=== PATIENT | male | born 1980 | race Caucasian/White ===

== ENCOUNTER 2020-04-02 11:30 | Inpatient (IN) ==
[2020-04-08] MEDS ORDERED: CEFUROXIME INJ 1,500 MG in SYRINGE 1 EACH IV ONE (09:22)
[2020-04-08] MEDS ORDERED: DEXTROSE 50% 25 GM/50 ML VIAL IV PRN ×2 (09:22)
[2020-04-08] MEDS ORDERED: GLUCAGON 1 MG VIAL IM PRN ×2 (09:22)
[2020-04-08] MEDS ORDERED: SODIUM CHLORIDE 0.9% 1,000 ML IV SCH (09:30)
[2020-04-08 10:04] LABS: Basophils % 0.6 % (0.0-0.8); Eosinophils # 0.3 10*3/uL (0.0-0.87); Eosinophils % 4.7 % (0.00-10.9); Hematocrit 38.8 VOL% (42.0-52.0); Immature Granulocytes % 0.2 %; Immature Granulocytes Absolute 0.01 #; Lymphocytes # 1.8 10*3/uL (1.4-4.0); Lymphocytes % 26.6 % (21.2-54.2); Mean Corpuscular HGB Conc 33.5 GM/DL (32-36); Mean Corpuscular Volume 89.4 FL (87-102); Mean Platelet Volume 9.5 FL (9.6-12.0); Neutrophils % 59.9 % (38.7-73.9); Platelet Count 200 T/CUMM (130-400); Red Blood Count 4.34 MC/CUMM (3.8-5.5); Red Cell Distribution Width 13.2 % (9.3-17.3); White Blood Count 6.6 T/CUMM (4-12)
[2020-04-08] MEDS ORDERED: NITROGLYCERIN SL 0.4 MG TABLET SL PRN (10:12)
[2020-04-08] MEDS ORDERED: ZALEPLON 5 MG CAPSULE PO PRN (10:12)
[2020-04-08] MEDS ORDERED: CLORAZEPATE 3.75 MG TABLET PO PRN (10:12)
[2020-04-08] MEDS ORDERED: MORPHINE 4 MG/1 ML VIAL IV PRN (10:13)
[2020-04-08 10:36] LABS: Albumin 3.5 G/DL (3.4-5.0); Bilirubin,Total 0.6 MG/DL (0.2-1.0); Osmolality,Calculated 273.8 MOS/KG (273-304); Total Protein 7.7 G/DL (6.4-8.3)
[2020-04-08] MEDS: CHLORHEXIDINE 0.12% ORAL RINSE 60 ML BOTTLE SWISH/SPIT SCH ×2 (11:18→22:01)
[2020-04-08 11:50] LABS: ABG Base Excess 2.7 MMOL/L (-2.5-2.5); ABG HCO3 26.8 MMOL/L (20-26); ABG Oxygen Saturation 98.5 % (95-100); ABG PH 7.422 (7.35-7.45)
[2020-04-08] MEDS ORDERED: DIAZEPAM 5 MG TABLET PO ONE (12:24)
[2020-04-08] MEDS ORDERED: FAMOTIDINE 20 MG TABLET PO ONE (12:24)
[2020-04-08] MEDS: INSULIN REGULAR 100 UNIT/ML SUBCUT SCH ×3 (12:57→22:01)
[2020-04-08] MEDS: CHLORHEXIDINE 4% SOLN 118 ML BOTTLE TOP SCH ×2 (15:03→22:01)
[2020-04-09] MEDS: CHLORHEXIDINE 4% SOLN 118 ML BOTTLE TOP SCH ×2 (03:40→08:01)
[2020-04-09] MEDS: CHLORHEXIDINE 0.12% ORAL RINSE 60 ML BOTTLE SWISH/SPIT SCH ×3 (03:40→21:18)
[2020-04-09] MEDS ORDERED: PAPAVERINE 60 MG/2 ML VIAL ONE (04:21)
[2020-04-09] MEDS ORDERED: VANCOMYCIN 1,000 MG VIAL ONE (04:22)
[2020-04-09] MEDS ORDERED: VANCOMYCIN 500 MG VIAL ONE (04:22)
[2020-04-09] MEDS ORDERED: CALCIUM CHLORIDE 1,000 MG/10 ML VIAL IV ONE (05:59)
[2020-04-09] MEDS ORDERED: SUFentanil 250 MCG/5 ML AMP ONE (06:00)
[2020-04-09] MEDS ORDERED: MIDAZOLAM 10 MG/2 ML VIAL ONE (06:00)
[2020-04-09] MEDS ORDERED: EPINEPHrine 1 MG/ML VIAL ONE (06:00)
[2020-04-09] MEDS ORDERED: DIAZEPAM 5 MG TABLET PO ONE (06:30)
[2020-04-09] MEDS ORDERED: FAMOTIDINE 20 MG TABLET PO ONE (06:30)
[2020-04-09] MEDS ORDERED: CEFUROXIME INJ 1,500 MG in SYRINGE 1 EACH IV ONE (06:30)
[2020-04-09 07:35] LABS: ABG HCO3 24.4 MMOL/L (20-26); ABG PCO2 41.3 MM HG (35-48); ABG PH 7.389 (7.35-7.45); Glucose Heart Surgery 116 MG/DL (74-106); Hematocrit Heart Surgery 37.8 PERCENT (42-52); Hemoglobin Heart Surgery 12.3 G/DL (14.0-18.0); Ionized Calcium Arterial 1.17 MMOL/L (1.21-1.46); PCO2 Patient Temp Arterial 41.3 MMHG; PH Patient Temp Arterial 7.389; Patient Temperature 37 CELCIUS; Sodium Heart/CVR 137 MMOL/L (135-145)
[2020-04-09] MEDS ORDERED: NITROPRUSSIDE 50 MG/2 ML VIAL ONE (07:47)
[2020-04-09] MEDS ORDERED: CALCIUM CHLORIDE 1,000 MG/10 ML SYRINGE IV ONE (07:47)
[2020-04-09] MEDS ORDERED: SODIUM BICARBONATE 50 MEQ/50 ML VIAL IV ONE ×2 (07:47→10:14)
[2020-04-09] MEDS ORDERED: PHENYLEPHRINE DRIP 40 MG/250 ML PREMIX IV ONE (07:47)
[2020-04-09] MEDS ORDERED: POTASSIUM CHLORIDE RIDER 100 ML IV ONE (07:47)
[2020-04-09] MEDS ORDERED: ALBUMIN 5% 12.5 GM/250 ML VIAL IV ONE ×2 (07:48)
[2020-04-09] MEDS: INSULIN REGULAR 100 UNIT/ML SUBCUT SCH (08:01)
[2020-04-09 08:14] LABS: Apearance,Urine CLEAR (Clear); Bacteria,Urine Occasional /HPF (Few); Bilirubin,Urine Negative (Negative); Blood, Urine Negative (Negative); Glucose,Urine (UA) Negative (Negative); Ketones,Urine Negative (Negative); Nitrite,Urine Negative (Negative); Protein,Urine Negative; RBC,Urine 5 /HPF (0-4); Urine Color Yellow (Yellow); Urine Specific Gravity 1.018 (1.001-1.035); Urine Urobilinogen < 2.0 EU/DL (0.2-1.0); WBC,Urine <1 /HPF (0-6)
[2020-04-09 09:12] LABS: Hematocrit Heart Surgery 29.6 PERCENT (42-52); Hemoglobin Heart Surgery 9.6 G/DL (14.0-18.0); PCO2 Patient Temp Venous 37.7 MM HG; PH Patient Temp Venous 7.45; PO2 Patient Temp Venous 36.5 MM HG; Potassium Heart/CVR 5.7 MMOL/L (3.5-5.1); VBG Base Excess 2.4 MEQ/L (0-4); VBG HCO3 26.2 MEQ/L (24-28); VBG Oxygen Saturation 80.8 %; VBG PCO2 43.6 MMHG (41-51); VBG PH 7.406
[2020-04-09 09:43] LABS: Hematocrit Heart Surgery 31.7 PERCENT (42-52); Hemoglobin Heart Surgery 10.3 G/DL (14.0-18.0); PH Patient Temp Venous 7.48; PO2 Patient Temp Venous 34.5 MM HG; Potassium Heart/CVR 5.8 MMOL/L (3.5-5.1); VBG Base Excess 2.8 MEQ/L (0-4); VBG HCO3 26.5 MEQ/L (24-28); VBG Oxygen Saturation 79.4 %; VBG PCO2 40.4 MMHG (41-51); VBG PH 7.435; VBG PO2 42.6 MMHG (17-40)
[2020-04-09] MEDS ORDERED: PROTAMINE SULFATE 250 MG/25 ML VIAL IV ONE (10:14)
[2020-04-09] MEDS ORDERED: ALBUMIN 25% 25 GM/100 ML VIAL IV ONE (10:14)
[2020-04-09] MEDS ORDERED: LIDOCAINE 2% 5 ML VIAL ONE ×2 (10:14→11:01)
[2020-04-09] MEDS ORDERED: DEXTROSE 5% KCL 20 MEQ 20 MEQ/1,000 ML BAG IV ONE (10:14)
[2020-04-09] MEDS ORDERED: MANNITOL 100 GM/500 ML BAG IV ONE (10:14)
[2020-04-09] MEDS ORDERED: PROTAMINE SULFATE 50 MG/5 ML VIAL IV ONE ×2 (10:15→11:08)
[2020-04-09] MEDS ORDERED: methylPREDNISolone SOD SUC 1,000 MG/8 ML VIAL ONE (10:15)
[2020-04-09] MEDS ORDERED: HEPARIN 10,000 UNIT/10 ML VIAL ONE (10:15)
[2020-04-09] MEDS ORDERED: MAGNESIUM SULFATE 5 GM/10 ML VIAL IV ONE (10:15)
[2020-04-09] MEDS ORDERED: FUROSEMIDE 20 MG/2 ML VIAL ONE (10:15)
[2020-04-09 10:24] LABS: ABG Base Excess 0.3 MMOL/L (-2.5-2.5); ABG HCO3 24.7 MMOL/L (20-26); ABG Oxygen Saturation 98.9 % (95-100); ABG PCO2 45.2 MM HG (35-48); ABG PH 7.368 (7.35-7.45); ABG TCO2 23.2 MMOL/L (23-27); Glucose Heart Surgery 218 MG/DL (74-106); Hematocrit Heart Surgery 35.8 PERCENT (42-52); Hemoglobin Heart Surgery 11.6 G/DL (14.0-18.0); Ionized Calcium Arterial 1.22 MMOL/L (1.21-1.46); PCO2 Patient Temp Arterial 45.2 MMHG; PH Patient Temp Arterial 7.368; Patient Temperature 37 CELCIUS; Potassium Heart/CVR 4.4 MMOL/L (3.5-5.1); Sodium Heart/CVR 133 MMOL/L (135-145)
[2020-04-09] MEDS ORDERED: INSULIN REGULAR 100 UNIT/ML IV PRN (10:46)
[2020-04-09] MEDS ORDERED: DEXTROSE 50% 25 GM/50 ML VIAL IV PRN ×2 (10:46)
[2020-04-09] MEDS ORDERED: CALCIUM CHLORIDE 1,000 MG/10 ML SYRINGE IV PRN (10:46)
[2020-04-09] MEDS ORDERED: MIDAZOLAM 10 MG/2 ML VIAL IV PRN (10:46)
[2020-04-09] MEDS ORDERED: ACETAMINOPHEN 650 MG SUPP RECTAL PRN (10:46)
[2020-04-09] MEDS ORDERED: CHLORHEXIDINE 4% SOLN 118 ML BOTTLE TOP PRN (10:46)
[2020-04-09] MEDS ORDERED: MAGNESIUM SULF RIDER 4 GM in PREMIX 1 EACH IV PRN (10:46)
[2020-04-09] MEDS ORDERED: NITROPRUSSIDE 100 MG in DEXTROSE 5% 250 ML IV PRN (10:46)
[2020-04-09] MEDS ORDERED: ONDANSETRON 4 MG/2 ML VIAL IV PRN (10:46)
[2020-04-09] MEDS ORDERED: LACTATED RINGERS 250 ML IV PRN (10:46)
[2020-04-09] MEDS ORDERED: VECURONIUM 10 MG VIAL IV PRN ×2 (10:46)
[2020-04-09] MEDS ORDERED: MIDAZOLAM 2 MG/2 ML VIAL IV PRN (10:46)
[2020-04-09] MEDS ORDERED: PHENYLEPHRINE DRIP 40 MG/250 ML PREMIX IV PRN (10:46)
[2020-04-09] MEDS ORDERED: MAGNESIUM SULF RIDER 2 GM in PREMIX 1 EACH IV PRN (10:46)
[2020-04-09] MEDS ORDERED: INSULIN REGULAR 100 UNIT/ML IV ONE (10:46)
[2020-04-09] MEDS ORDERED: SEVOFLURANE 1 UNIT/15 MINUTE INH ONE (11:01)
[2020-04-09] MEDS ORDERED: propofoL 200 MG/20 ML VIAL IV ONE (11:01)
[2020-04-09] MEDS ORDERED: PHENYLEPHRINE DRIP 20 MG/250 ML PREMIX IV ONE (11:01)
[2020-04-09] MEDS ORDERED: NITROGLYCERIN DRIP 50 MG/250 ML BOTTLE IV ONE (11:02)
[2020-04-09] MEDS ORDERED: SODIUM CHLORIDE 0.9% 2,000 ML IV ONE (11:02)
[2020-04-09] MEDS ORDERED: LACTATED RINGERS 1,000 ML IV ONE (11:02)
[2020-04-09] MEDS ORDERED: VECURONIUM 10 MG VIAL IV ONE (11:02)
[2020-04-09] MEDS ORDERED: ETOMIDATE 40 MG/20 ML VIAL IV ONE (11:02)
[2020-04-09] MEDS ORDERED: SUFentanil 50 MCG/ML AMP ONE (11:02)
[2020-04-09] MEDS ORDERED: AMINOCAPROIC ACID 5,000 MG/20 ML VIAL ONE (11:02)
[2020-04-09] MEDS ORDERED: SODIUM CHLORIDE 0.9% 250 ML IV ONE (11:02)
[2020-04-09] MEDS: SODIUM CHLORIDE 0.45% 1,000 ML IV SCH ×2 (11:21→11:22)
[2020-04-09 11:23] LABS: ABG Base Excess 0.8 MMOL/L (-2.5-2.5); ABG HCO3 25.9 MMOL/L (20-26); ABG Oxygen Saturation 96.4 % (95-100); ABG PCO2 43.5 MM HG (35-48); ABG PH 7.393 (7.35-7.45); ABG PO2 91.6 MM HG (80-95); ABG TCO2 27.3 MMOL/L (23-27); Glucose Heart Surgery 174 MG/DL (74-106); Hemoglobin Heart Surgery 12.2 G/DL (14.0-18.0); Potassium Heart/CVR 3.5 MMOL/L (3.5-5.1)
[2020-04-09 11:24] LABS: Basophils % 0.3 % (0.0-0.8); Eosinophils # 0.1 10*3/uL (0.0-0.87); Eosinophils % 2.3 % (0.00-10.9); Hematocrit 33.8 VOL% (42.0-52.0); Hemoglobin 11.8 GM/DL (14.0-18.0); Immature Granulocytes % 0.5 %; Immature Granulocytes Absolute 0.03 #; Lymphocytes # 0.7 10*3/uL (1.4-4.0); Mean Corpuscular HGB Conc 34.9 GM/DL (32-36); Mean Corpuscular Volume 89.7 FL (87-102); Mean Platelet Volume 9.3 FL (9.6-12.0); Monocytes % 5.5 % (1.7-12.7); Neutrophils % 79.4 % (38.7-73.9); Platelet Count 158 T/CUMM (130-400); Red Blood Count 3.77 MC/CUMM (3.8-5.5); Red Cell Distribution Width 13.2 % (9.3-17.3)
[2020-04-09] MEDS: POTASSIUM CHLORIDE RIDER 20 MEQ in PREMIX 1 EACH IV PRN ×2 (11:25→13:56)
[2020-04-09 11:38] LABS: INR 1.1; PT Patient Result 11.9 SECS (9.8-11.9); Partial Thromboplastin Time 31.9 SECS (23.9-33.8)
[2020-04-09] MEDS: LACTATED RINGERS 1,000 ML IV PRN ×3 (11:38→17:17)
[2020-04-09 11:56] LABS: CKMB % 5.7 %
[2020-04-09 11:58] LABS: Troponin I 1.57 NG/ML (0.00-0.045)
[2020-04-09] MEDS: INSULIN REGULAR DRIP 100 ML IV SCH (12:08)
[2020-04-09 12:18] LABS: Albumin 3.1 G/DL (3.4-5.0); Calcium 7.7 MG/DL (8.5-10.1); Osmolality,Calculated 279.5 MOS/KG (273-304); Total Protein 6.1 G/DL (6.4-8.3)
[2020-04-09 12:23] LABS: VBG Base Excess 2.9 MEQ/L (0-4); VBG HCO3 26.3 MEQ/L (24-28); VBG Oxygen Saturation 68.7 %; VBG PCO2 52.6 MMHG (41-51); VBG PH 7.358; VBG PO2 39.9 MMHG (17-40)
[2020-04-09] MEDS: POTASSIUM CHLORIDE RIDER 10 MEQ in PREMIX 1 EACH IV PRN ×2 (12:24→14:27)
[2020-04-09] MEDS: ALBUMIN 5% 12.5 GM in PREMIX 1 EACH IV PRN ×2 (12:25→20:14)
[2020-04-09 13:52] LABS: ABG Base Excess 2.3 MMOL/L (-2.5-2.5); ABG HCO3 26.5 MMOL/L (20-26); ABG Oxygen Saturation 99.6 % (95-100); ABG PCO2 45.8 MM HG (35-48); ABG PH 7.392 (7.35-7.45); ABG TCO2 24.6 MMOL/L (23-27); Glucose Heart Surgery 126 MG/DL (74-106); Hematocrit Heart Surgery 37.8 PERCENT (42-52); Hemoglobin Heart Surgery 12.3 G/DL (14.0-18.0); Potassium Heart/CVR 3.7 MMOL/L (3.5-5.1)
[2020-04-09 15:52] LABS: ABG Base Excess 2.2 MMOL/L (-2.5-2.5); ABG HCO3 26.4 MMOL/L (20-26); ABG Oxygen Saturation 99.4 % (95-100); ABG PCO2 48.6 MM HG (35-48); ABG PH 7.374 (7.35-7.45); ABG TCO2 24.6 MMOL/L (23-27); Glucose Heart Surgery 164 MG/DL (74-106); Hemoglobin Heart Surgery 13.7 G/DL (14.0-18.0); Potassium Heart/CVR 4.4 MMOL/L (3.5-5.1)
[2020-04-09] MEDS: CEFUROXIME INJ 1,500 MG in SYRINGE 1 EACH IV SCH (17:50)
[2020-04-09 18:04] LABS: ABG Base Excess 0.9 MMOL/L (-2.5-2.5); ABG HCO3 26.4 MMOL/L (20-26); ABG Oxygen Saturation 97.7 % (95-100); ABG PCO2 45.8 MM HG (35-48); ABG PH 7.379 (7.35-7.45); ABG PO2 111.3 MM HG (80-95); ABG TCO2 27.8 MMOL/L (23-27); Glucose Heart Surgery 174 MG/DL (74-106); Hemoglobin Heart Surgery 12.6 G/DL (14.0-18.0); Potassium Heart/CVR 4.5 MMOL/L (3.5-5.1)
[2020-04-09] MEDS: KETOROLAC 30 MG/1 ML VIAL IV SCH (19:17)
[2020-04-09 19:20] LABS: ABG Base Excess 2.2 MMOL/L (-2.5-2.5); ABG HCO3 26.4 MMOL/L (20-26); ABG Oxygen Saturation 97.6 % (95-100); ABG PCO2 48.2 MM HG (35-48); ABG PH 7.375 (7.35-7.45); ABG PO2 98.1 MM HG (80-95); ABG TCO2 24.9 MMOL/L (23-27); Glucose Heart Surgery 182 MG/DL (74-106); Hematocrit Heart Surgery 38.2 PERCENT (42-52); Hemoglobin Heart Surgery 12.4 G/DL (14.0-18.0); Potassium Heart/CVR 4.5 MMOL/L (3.5-5.1)
[2020-04-09 19:34] LABS: CKMB % 5.3 %
[2020-04-09 19:37] LABS: Troponin I 5.75 NG/ML (0.00-0.045)
[2020-04-09 21:52] LABS: ABG Base Excess 2.4 MMOL/L (-2.5-2.5); ABG HCO3 26.6 MMOL/L (20-26); ABG Oxygen Saturation 98.2 % (95-100); ABG PCO2 46.6 MM HG (35-48); ABG PH 7.387 (7.35-7.45); ABG TCO2 25.1 MMOL/L (23-27); Glucose Heart Surgery 155 MG/DL (74-106); Hematocrit Heart Surgery 34.3 PERCENT (42-52); Hemoglobin Heart Surgery 11.1 G/DL (14.0-18.0); Potassium Heart/CVR 4.2 MMOL/L (3.5-5.1)
[2020-04-09 22:35] LABS: Hematocrit Heart Surgery 35.9 PERCENT (42-52); Hemoglobin Heart Surgery 11.7 G/DL (14.0-18.0); PCO2 Patient Temp Venous 46.2 MM HG; PH Patient Temp Venous 7.395; PO2 Patient Temp Venous 55.5 MM HG; Potassium Heart/CVR 4.3 MMOL/L (3.5-5.1); VBG Base Excess 2.8 MEQ/L (0-4); VBG HCO3 26.7 MEQ/L (24-28); VBG Oxygen Saturation 87.3 %; VBG PCO2 46.2 MMHG (41-51); VBG PH 7.395; VBG PO2 55.5 MMHG (17-40)
[2020-04-09 23:51] LABS: ABG Base Excess 3.4 MMOL/L (-2.5-2.5); ABG HCO3 27.4 MMOL/L (20-26); ABG PH 7.404 (7.35-7.45); ABG TCO2 25.7 MMOL/L (23-27); Glucose Heart Surgery 149 MG/DL (74-106); Hematocrit Heart Surgery 35.1 PERCENT (42-52); Hemoglobin Heart Surgery 11.4 G/DL (14.0-18.0); Potassium Heart/CVR 4.2 MMOL/L (3.5-5.1)
[2020-04-10 00:48] LABS: ABG Base Excess 3.9 MMOL/L (-2.5-2.5); ABG HCO3 27.8 MMOL/L (20-26); ABG Oxygen Saturation 96.5 % (95-100); ABG PCO2 44.6 MM HG (35-48); ABG PO2 81.1 MM HG (80-95); ABG TCO2 25.7 MMOL/L (23-27); Glucose Heart Surgery 145 MG/DL (74-106); Hematocrit Heart Surgery 35.7 PERCENT (42-52); Hemoglobin Heart Surgery 11.6 G/DL (14.0-18.0); Potassium Heart/CVR 4.1 MMOL/L (3.5-5.1)
[2020-04-10] MEDS ORDERED: FUROSEMIDE 40 MG/4 ML VIAL IV ONE (01:10)
[2020-04-10] MEDS: KETOROLAC 30 MG/1 ML VIAL IV SCH ×4 (01:35→20:23)
[2020-04-10 03:52] LABS: ABG Base Excess 6.2 MMOL/L (-2.5-2.5); ABG HCO3 29.9 MMOL/L (20-26); ABG Oxygen Saturation 93.3 % (95-100); ABG PCO2 45.4 MM HG (35-48); ABG PH 7.445 (7.35-7.45); ABG PO2 66.1 MM HG (80-95); ABG TCO2 27.6 MMOL/L (23-27); Glucose Heart Surgery 139 MG/DL (74-106); Hematocrit Heart Surgery 36.6 PERCENT (42-52); Hemoglobin Heart Surgery 11.9 G/DL (14.0-18.0); Potassium Heart/CVR 3.9 MMOL/L (3.5-5.1)
[2020-04-10 03:55] LABS: Basophils % 0.2 % (0.0-0.8); Hematocrit 34.3 VOL% (42.0-52.0); Hemoglobin 11.8 GM/DL (14.0-18.0); Immature Granulocytes % 0.4 %; Immature Granulocytes Absolute 0.08 #; Lymphocytes # 0.9 10*3/uL (1.4-4.0); Lymphocytes % 5.1 % (21.2-54.2); Mean Corpuscular HGB Conc 34.4 GM/DL (32-36); Mean Corpuscular Volume 89.3 FL (87-102); Mean Platelet Volume 9.8 FL (9.6-12.0); Monocytes % 4.4 % (1.7-12.7); Neutrophils % 89.9 % (38.7-73.9); Platelet Count 190 T/CUMM (130-400); Red Blood Count 3.84 MC/CUMM (3.8-5.5); White Blood Count 18.2 T/CUMM (4-12)
[2020-04-10 04:20] LABS: CKMB % 4.2 %
[2020-04-10 04:21] LABS: Troponin I 3.42 NG/ML (0.00-0.045)
[2020-04-10 04:22] LABS: Albumin 3.4 G/DL (3.4-5.0); Bilirubin,Direct 0.25 MG/DL (0.0-0.20); Bilirubin,Total 0.9 MG/DL (0.2-1.0); Calcium 8.8 MG/DL (8.5-10.1); Osmolality,Calculated 271.1 MOS/KG (273-304); Total Protein 6.8 G/DL (6.4-8.3)
[2020-04-10 04:48] LABS: ABG Base Excess 6.7 MMOL/L (-2.5-2.5); ABG HCO3 30.4 MMOL/L (20-26); ABG PCO2 45.4 MM HG (35-48); ABG PH 7.451 (7.35-7.45); ABG PO2 69.6 MM HG (80-95); Glucose Heart Surgery 143 MG/DL (74-106); Hematocrit Heart Surgery 36.4 PERCENT (42-52); Hemoglobin Heart Surgery 11.8 G/DL (14.0-18.0); Potassium Heart/CVR 3.8 MMOL/L (3.5-5.1)
[2020-04-10 05:42] LABS: Hemoglobin Heart Surgery 12.6 G/DL (14.0-18.0); PCO2 Patient Temp Venous 41.5 MM HG; PH Patient Temp Venous 7.48; Potassium Heart/CVR 3.9 MMOL/L (3.5-5.1); VBG Base Excess 6.2 MEQ/L (0-4); VBG HCO3 30.2 MEQ/L (24-28); VBG Oxygen Saturation 79.3 %; VBG PCO2 41.5 MMHG (41-51); VBG PH 7.48
[2020-04-10 05:56] LABS: ABG Base Excess 6.5 MMOL/L (-2.5-2.5); ABG HCO3 30.3 MMOL/L (20-26); ABG Oxygen Saturation 96.4 % (95-100); ABG PCO2 44.4 MM HG (35-48); ABG PH 7.455 (7.35-7.45); ABG PO2 81.2 MM HG (80-95); ABG TCO2 27.6 MMOL/L (23-27); Glucose Heart Surgery 146 MG/DL (74-106); Hematocrit Heart Surgery 36.6 PERCENT (42-52); Hemoglobin Heart Surgery 11.9 G/DL (14.0-18.0); Potassium Heart/CVR 3.9 MMOL/L (3.5-5.1)
[2020-04-10] MEDS ORDERED: INSULIN REGULAR 100 UNIT/ML SUBCUT SCH (06:00)
[2020-04-10] MEDS: CEFUROXIME INJ 1,500 MG in SYRINGE 1 EACH IV SCH ×2 (06:10→18:00)
[2020-04-10 07:47] LABS: ABG Base Excess 6.1 MMOL/L (-2.5-2.5); ABG HCO3 29.9 MMOL/L (20-26); ABG PCO2 41.9 MM HG (35-48); ABG PH 7.469 (7.35-7.45); ABG PO2 83.9 MM HG (80-95); ABG TCO2 26.8 MMOL/L (23-27); Glucose Heart Surgery 158 MG/DL (74-106); Hematocrit Heart Surgery 36.5 PERCENT (42-52); Hemoglobin Heart Surgery 11.9 G/DL (14.0-18.0); Potassium Heart/CVR 3.7 MMOL/L (3.5-5.1)
[2020-04-10] MEDS: INSULIN REGULAR 100 UNIT/ML SUBCUT SCH ×5 (07:53→23:54)
[2020-04-10] MEDS: POTASSIUM CHLORIDE RIDER 20 MEQ in PREMIX 1 EACH IV PRN (07:54)
[2020-04-10] MEDS: ALBUMIN 5% 12.5 GM in PREMIX 1 EACH IV PRN ×2 (08:23→08:51)
[2020-04-10] MEDS: POTASSIUM CHLORIDE RIDER 10 MEQ in PREMIX 1 EACH IV PRN (08:26)
[2020-04-10] MEDS: CHLORHEXIDINE 0.12% ORAL RINSE 60 ML BOTTLE SWISH/SPIT SCH ×2 (08:38→21:03)
[2020-04-10 10:38] LABS: ABG Base Excess 4.8 MMOL/L (-2.5-2.5); ABG HCO3 28.9 MMOL/L (20-26); ABG Oxygen Saturation 98.1 % (95-100); ABG PCO2 40.7 MM HG (35-48); ABG PH 7.469 (7.35-7.45); ABG PO2 121.2 MM HG (80-95); ABG TCO2 30.1 MMOL/L (23-27); Glucose Heart Surgery 127 MG/DL (74-106); Hemoglobin Heart Surgery 11.2 G/DL (14.0-18.0)
[2020-04-10] MEDS: MORPHINE 4 MG/1 ML VIAL IV PRN ×2 (11:33→19:20)
[2020-04-10] MEDS: INSULIN REGULAR DRIP 100 ML IV SCH (11:39)
[2020-04-10] MEDS: SODIUM CHLORIDE 0.45% 1,000 ML IV SCH ×2 (11:39)
[2020-04-10 12:45] LABS: ABG Base Excess 5.7 MMOL/L (-2.5-2.5); ABG HCO3 29.6 MMOL/L (20-26); ABG Oxygen Saturation 99.6 % (95-100); ABG PCO2 46.3 MM HG (35-48); ABG PH 7.432 (7.35-7.45); ABG TCO2 27.6 MMOL/L (23-27); Glucose Heart Surgery 132 MG/DL (74-106); Hematocrit Heart Surgery 33.8 PERCENT (42-52); Potassium Heart/CVR 4.2 MMOL/L (3.5-5.1)
[2020-04-10] MEDS: MORPHINE 10 MG/1 ML VIAL IV PRN ×2 (13:11→17:21)
[2020-04-10 13:39] LABS: ABG Base Excess 5.3 MMOL/L (-2.5-2.5); ABG HCO3 31.4 MMOL/L (20-26); ABG Oxygen Saturation 98.5 % (95-100); ABG PCO2 53.6 MM HG (35-48); ABG PH 7.386 (7.35-7.45); ABG PO2 158.4 MM HG (80-95); ABG TCO2 33.1 MMOL/L (23-27); Glucose Heart Surgery 129 MG/DL (74-106); Hemoglobin Heart Surgery 11.4 G/DL (14.0-18.0)
[2020-04-10 14:01] LABS: CKMB % 2.6 %
[2020-04-10 14:03] LABS: Troponin I 2.29 NG/ML (0.00-0.045)
[2020-04-10] MEDS ORDERED: hydrALAZINE 20 MG/1 ML VIAL IV PRN (15:53)
[2020-04-10 16:02] LABS: ABG HCO3 31.8 MMOL/L (20-26); ABG Oxygen Saturation 99.6 % (95-100); ABG PCO2 55.4 MM HG (35-48); ABG PH 7.402 (7.35-7.45); Glucose Heart Surgery 126 MG/DL (74-106); Hematocrit Heart Surgery 33.7 PERCENT (42-52); Hemoglobin Heart Surgery 10.9 G/DL (14.0-18.0)
[2020-04-10] MEDS: ASPIRIN 325 MG TABLET PO SCH (16:40)
[2020-04-10] MEDS: METOPROLOL TARTRATE 25 MG TABLET PO SCH (20:23)
[2020-04-11] MEDS: KETOROLAC 30 MG/1 ML VIAL IV SCH ×4 (02:54→20:01)
[2020-04-11 04:43] LABS: ABG Base Excess 5.4 MMOL/L (-2.5-2.5); ABG HCO3 29.3 MMOL/L (20-26); ABG Oxygen Saturation 99.2 % (95-100); ABG PCO2 53.5 MM HG (35-48); ABG PH 7.382 (7.35-7.45); ABG TCO2 28.4 MMOL/L (23-27)
[2020-04-11] MEDS: INSULIN REGULAR 100 UNIT/ML SUBCUT SCH ×5 (04:43→20:00)
[2020-04-11] MEDS: MORPHINE 4 MG/1 ML VIAL IV PRN (04:44)
[2020-04-11 04:47] LABS: Basophils % 0.1 % (0.0-0.8); Eosinophils % 0.2 % (0.00-10.9); Hematocrit 33.2 VOL% (42.0-52.0); Hemoglobin 11.2 GM/DL (14.0-18.0); Immature Granulocytes % 0.4 %; Immature Granulocytes Absolute 0.06 #; Lymphocytes # 1.6 10*3/uL (1.4-4.0); Lymphocytes % 11.8 % (21.2-54.2); Mean Corpuscular HGB Conc 33.7 GM/DL (32-36); Mean Corpuscular Volume 91.2 FL (87-102); Mean Platelet Volume 9.9 FL (9.6-12.0); Monocytes % 7.3 % (1.7-12.7); Neutrophils % 80.2 % (38.7-73.9); Platelet Count 146 T/CUMM (130-400); Red Blood Count 3.64 MC/CUMM (3.8-5.5); Red Cell Distribution Width 13.4 % (9.3-17.3); White Blood Count 13.6 T/CUMM (4-12)
[2020-04-11 05:03] LABS: Albumin 3.4 G/DL (3.4-5.0); Bilirubin,Direct 0.21 MG/DL (0.0-0.20); Bilirubin,Total 1.1 MG/DL (0.2-1.0); Osmolality,Calculated 272.1 MOS/KG (273-304); Total Protein 6.9 G/DL (6.4-8.3)
[2020-04-11] MEDS: ALBUTEROL/IPRATROPIUM 3 ML NEB RESP TX SCH ×5 (08:24→23:50)
[2020-04-11] MEDS: METOPROLOL TARTRATE 25 MG TABLET PO SCH ×2 (08:29→20:01)
[2020-04-11] MEDS: NICOTINE 14 MG/24 HR PATCH TRANSDERM SCH (08:29)
[2020-04-11] MEDS: ASPIRIN 325 MG TABLET PO SCH (08:29)
[2020-04-11] MEDS: CHLORHEXIDINE 0.12% ORAL RINSE 60 ML BOTTLE SWISH/SPIT SCH ×2 (08:30→20:01)
[2020-04-11 15:44] LABS: ABG Base Excess 4.7 MMOL/L (-2.5-2.5); ABG HCO3 28.6 MMOL/L (20-26); ABG Oxygen Saturation 97.2 % (95-100); ABG PCO2 51.3 MM HG (35-48); ABG PH 7.387 (7.35-7.45); ABG PO2 90.6 MM HG (80-95); ABG TCO2 27.6 MMOL/L (23-27); Glucose Heart Surgery 142 MG/DL (74-106); Hematocrit Heart Surgery 34.6 PERCENT (42-52); Hemoglobin Heart Surgery 11.2 G/DL (14.0-18.0); Potassium Heart/CVR 4.5 MMOL/L (3.5-5.1)
[2020-04-11] MEDS: SODIUM CHLORIDE 0.45% 1,000 ML IV SCH ×3 (17:58→19:46)
[2020-04-12] MEDS: SODIUM CHLORIDE 0.45% 1,000 ML IV SCH ×2 (02:34→08:25)
[2020-04-12] MEDS: KETOROLAC 30 MG/1 ML VIAL IV SCH ×4 (02:35→19:41)
[2020-04-12 03:32] LABS: Basophils % 0.3 % (0.0-0.8); Eosinophils % 0.4 % (0.00-10.9); Hematocrit 32.8 VOL% (42.0-52.0); Hemoglobin 10.9 GM/DL (14.0-18.0); Immature Granulocytes % 0.4 %; Immature Granulocytes Absolute 0.04 #; Lymphocytes # 1.8 10*3/uL (1.4-4.0); Lymphocytes % 16.4 % (21.2-54.2); Mean Corpuscular HGB Conc 33.2 GM/DL (32-36); Mean Corpuscular Volume 93.2 FL (87-102); Monocytes % 8.5 % (1.7-12.7); Platelet Count 158 T/CUMM (130-400); Red Blood Count 3.52 MC/CUMM (3.8-5.5); Red Cell Distribution Width 13.2 % (9.3-17.3); White Blood Count 11.2 T/CUMM (4-12)
[2020-04-12 03:44] LABS: Albumin 3.1 G/DL (3.4-5.0); Bilirubin,Direct 0.12 MG/DL (0.0-0.20); Bilirubin,Total 0.4 MG/DL (0.2-1.0); Calcium 8.7 MG/DL (8.5-10.1); Osmolality,Calculated 276.7 MOS/KG (273-304); Total Protein 6.7 G/DL (6.4-8.3)
[2020-04-12] MEDS: ALBUTEROL/IPRATROPIUM 3 ML NEB RESP TX SCH ×6 (03:56→23:57)
[2020-04-12] MEDS: POTASSIUM CHLORIDE RIDER 20 MEQ in PREMIX 1 EACH IV PRN (04:16)
[2020-04-12] MEDS: INSULIN REGULAR 100 UNIT/ML SUBCUT SCH ×4 (08:24→21:07)
[2020-04-12] MEDS: NICOTINE 14 MG/24 HR PATCH TRANSDERM SCH (08:25)
[2020-04-12] MEDS: METOPROLOL TARTRATE 25 MG TABLET PO SCH ×2 (08:25→20:55)
[2020-04-12] MEDS: ASPIRIN 325 MG TABLET PO SCH (08:25)
[2020-04-12] MEDS: CHLORHEXIDINE 0.12% ORAL RINSE 60 ML BOTTLE SWISH/SPIT SCH ×2 (08:26→20:55)
[2020-04-12] MEDS ORDERED: MAGNESIUM HYDROXIDE SUSP 30 ML UDCUP PO PRN (09:46)
[2020-04-12] MEDS ORDERED: oxyCODONE/ACETAMINOPHEN 5-325 MG TABLET PO PRN (09:46)
[2020-04-12] MEDS ORDERED: ALUMINUM/MAGNES/SIMETH MAX STR 30 ML UDCUP PO PRN (09:46)
[2020-04-12] MEDS ORDERED: MAGNESIUM SULF RIDER 2 GM in PREMIX 1 EACH IV PRN (09:46)
[2020-04-12] MEDS ORDERED: GLUCAGON 1 MG VIAL IM PRN ×2 (09:46)
[2020-04-12] MEDS ORDERED: ACETAMINOPHEN 325 MG TABLET PO PRN (09:46)
[2020-04-12] MEDS ORDERED: MAGNESIUM SULF RIDER 4 GM in PREMIX 1 EACH IV PRN (09:46)
[2020-04-12] MEDS ORDERED: ONDANSETRON 4 MG/2 ML VIAL IV PRN (09:46)
[2020-04-12] MEDS ORDERED: DEXTROSE 50% 25 GM/50 ML VIAL IV PRN ×2 (09:46)
[2020-04-12] MEDS ORDERED: ZALEPLON 5 MG CAPSULE PO PRN (09:46)
[2020-04-12] MEDS ORDERED: POTASSIUM CHLORIDE 20 MEQ TABLET PO PRN (09:46)
[2020-04-12] MEDS ORDERED: SODIUM CHLOR 0.45% KCL 20 MEQ 20 MEQ/1,000 ML BAG IV SCH (10:00)
[2020-04-12] MEDS ORDERED: lisinopriL 2.5 MG TABLET PEG SCH (10:00)
[2020-04-12] MEDS: CLINDAMYCIN 300 MG CAPSULE PO SCH ×3 (13:29→20:54)
[2020-04-12] MEDS: lisinopriL 2.5 MG TABLET PO SCH (20:54)
[2020-04-12] MEDS ORDERED: METOPROLOL SUCCINATE XL 25 MG TABLET PO SCH (21:00)
[2020-04-13] MEDS: KETOROLAC 30 MG/1 ML VIAL IV SCH ×4 (01:35→21:00)
[2020-04-13] MEDS: ALBUTEROL/IPRATROPIUM 3 ML NEB RESP TX SCH ×6 (03:20→23:43)
[2020-04-13 05:23] LABS: Basophils % 0.5 % (0.0-0.8); Eosinophils # 0.2 10*3/uL (0.0-0.87); Eosinophils % 2.2 % (0.00-10.9); Hematocrit 33.9 VOL% (42.0-52.0); Immature Granulocytes % 0.5 %; Immature Granulocytes Absolute 0.04 #; Lymphocytes # 1.6 10*3/uL (1.4-4.0); Lymphocytes % 19.6 % (21.2-54.2); Mean Corpuscular HGB Conc 32.4 GM/DL (32-36); Mean Corpuscular Volume 94.2 FL (87-102); Mean Platelet Volume 10.1 FL (9.6-12.0); Monocytes % 8.9 % (1.7-12.7); Neutrophils % 68.3 % (38.7-73.9); Platelet Count 181 T/CUMM (130-400); Red Cell Distribution Width 13.4 % (9.3-17.3); White Blood Count 8.3 T/CUMM (4-12)
[2020-04-13] MEDS ORDERED: FUROSEMIDE 40 MG/4 ML VIAL IV ONE (06:00)
[2020-04-13 06:06] LABS: Alanine Aminotransferase 45 U/L (16-61); Albumin 3.2 G/DL (3.4-5.0); Alkaline Phosphatase 72 U/L (45-117); Aspartate Amino Transferase 31 U/L (0-37); Bilirubin,Indirect 0.6 MG/DL (0.0-1.0); Blood Urea Nitrogen 18 MG/DL (7-18); Calcium 8.6 MG/DL (8.5-10.1); Estimated Glom Filtration Rate 157 ML/MIN; Glucose 104 MG/DL (74-106); Osmolality,Calculated 278.5 MOS/KG (273-304); Total Protein 6.6 G/DL (6.4-8.3)
[2020-04-13 06:11] LABS: Troponin I 0.363 NG/ML (0.00-0.045)
[2020-04-13] MEDS: PANTOPRAZOLE 40 MG TABLET PO SCH (10:29)
[2020-04-13] MEDS: CLINDAMYCIN 300 MG CAPSULE PO SCH ×4 (10:29→21:00)
[2020-04-13] MEDS: METOPROLOL TARTRATE 25 MG TABLET PO SCH ×2 (10:29→21:00)
[2020-04-13] MEDS: ASPIRIN CHEW 81 MG TABLET PO SCH (10:29)
[2020-04-13] MEDS: lisinopriL 2.5 MG TABLET PO SCH (10:29)
[2020-04-13] MEDS: FUROSEMIDE 20 MG TABLET PO SCH (10:30)
[2020-04-13] MEDS: DOCUSATE SODIUM 100 MG CAPSULE PO SCH (10:30)
[2020-04-13] MEDS: FERROUS SULFATE 325 MG TABLET PO SCH (10:30)
[2020-04-13] MEDS: NICOTINE 14 MG/24 HR PATCH TRANSDERM SCH (10:30)
[2020-04-13] MEDS: INSULIN REGULAR 100 UNIT/ML SUBCUT SCH ×4 (10:30→21:07)
[2020-04-13] MEDS: CHLORHEXIDINE 0.12% ORAL RINSE 60 ML BOTTLE SWISH/SPIT SCH ×2 (10:36→21:00)
[2020-04-14] MEDS: KETOROLAC 30 MG/1 ML VIAL IV SCH ×2 (02:10→08:46)
[2020-04-14] MEDS: ALBUTEROL/IPRATROPIUM 3 ML NEB RESP TX SCH ×2 (03:09→07:13)
[2020-04-14 04:27] LABS: Basophils % 0.5 % (0.0-0.8); Eosinophils # 0.4 10*3/uL (0.0-0.87); Eosinophils % 5.1 % (0.00-10.9); Hemoglobin 12.3 GM/DL (14.0-18.0); Immature Granulocytes % 1.2 %; Immature Granulocytes Absolute 0.09 #; Lymphocytes # 1.7 10*3/uL (1.4-4.0); Lymphocytes % 22.4 % (21.2-54.2); Mean Corpuscular HGB Conc 33.2 GM/DL (32-36); Mean Corpuscular Volume 92.3 FL (87-102); Mean Platelet Volume 9.7 FL (9.6-12.0); Monocytes % 9.8 % (1.7-12.7); Platelet Count 187 T/CUMM (130-400); Red Blood Count 4.01 MC/CUMM (3.8-5.5); Red Cell Distribution Width 13.4 % (9.3-17.3); White Blood Count 7.6 T/CUMM (4-12)
[2020-04-14 04:57] LABS: Alanine Aminotransferase 74 U/L (16-61); Alkaline Phosphatase 79 U/L (45-117); Aspartate Amino Transferase 41 U/L (0-37); Bilirubin,Indirect 0.2 MG/DL (0.0-1.0); Bilirubin,Total < 0.39 MG/DL (0.2-1.0); Blood Urea Nitrogen 21 MG/DL (7-18); Estimated Glom Filtration Rate 140 ML/MIN; Glucose 113 MG/DL (74-106); Osmolality,Calculated 282.4 MOS/KG (273-304); Total Protein 6.5 G/DL (6.4-8.3)
[2020-04-14 05:13] LABS: Troponin I 0.218 NG/ML (0.00-0.045)
[2020-04-14 07:46] VITALS: BP 119/70
[2020-04-14] MEDS: INSULIN REGULAR 100 UNIT/ML SUBCUT SCH ×2 (08:05→12:14)
[2020-04-14] MEDS: FUROSEMIDE 20 MG TABLET PO SCH (08:46)
[2020-04-14] MEDS: NICOTINE 14 MG/24 HR PATCH TRANSDERM SCH (08:46)
[2020-04-14] MEDS: DOCUSATE SODIUM 100 MG CAPSULE PO SCH (08:46)
[2020-04-14] MEDS: METOPROLOL TARTRATE 25 MG TABLET PO SCH (08:46)
[2020-04-14] MEDS: PANTOPRAZOLE 40 MG TABLET PO SCH (08:46)
[2020-04-14] MEDS: FERROUS SULFATE 325 MG TABLET PO SCH (08:46)
[2020-04-14] MEDS: CLINDAMYCIN 300 MG CAPSULE PO SCH (08:46)
[2020-04-14] MEDS: lisinopriL 2.5 MG TABLET PO SCH (08:46)
[2020-04-14] MEDS: ASPIRIN CHEW 81 MG TABLET PO SCH (08:46)
[2020-04-14] MEDS: CHLORHEXIDINE 0.12% ORAL RINSE 60 ML BOTTLE SWISH/SPIT SCH (08:52)
== END 2020-04-14 11:56 | disposition home or self-care (01) | DRG 236 ==
LOC: N.TELEN 04-08 09:13 → N.CVR 04-09 10:40 → N.ICU 04-10 18:20 → N.TELES 04-12 13:09

== ENCOUNTER 2020-08-07 18:30 | Observation (INO) ==
[2020-08-07 19:01] LABS: Basophils # 0.1 10*3/uL (0.0-0.2); Basophils % 0.8 % (0.0-0.8); Eosinophils # 0.3 10*3/uL (0.0-0.87); Eosinophils % 4.4 % (0.00-10.9); Hematocrit 42.3 VOL% (42.0-52.0); Hemoglobin 14.2 GM/DL (14.0-18.0); Immature Granulocytes % 0.4 %; Immature Granulocytes Absolute 0.03 #; Lymphocytes # 1.8 10*3/uL (1.4-4.0); Lymphocytes % 24.5 % (21.2-54.2); Mean Corpuscular HGB Conc 33.6 GM/DL (32-36); Mean Corpuscular Volume 88.5 FL (87-102); Mean Platelet Volume 9.4 FL (9.6-12.0); Monocytes % 9.2 % (1.7-12.7); Neutrophils % 60.7 % (38.7-73.9); Platelet Count 255 T/CUMM (130-400); Red Blood Count 4.78 MC/CUMM (3.8-5.5); Red Cell Distribution Width 13.9 % (9.3-17.3); White Blood Count 7.3 T/CUMM (4-12)
[2020-08-07 19:22] LABS: Eosinophils 8 % (0-10); Lymphocytes 29 % (20-55); Platelet Estimate Adequate; Segmented Neutrophils 59 % (50-85); Total Cells Counted 100
[2020-08-07 19:30] LABS: Albumin 3.4 G/DL (3.4-5.0); Bilirubin,Total 0.4 MG/DL (0.2-1.0); Calcium 8.9 MG/DL (8.5-10.1); Osmolality,Calculated 277.7 MOS/KG (273-304); Potassium 3.8 MMOL/L (3.5-5.1); Total Protein 7.9 G/DL (6.4-8.3)
[2020-08-07] MEDS ORDERED: ASPIRIN EC 325 MG TABLET PO STA (19:33)
[2020-08-07] MEDS ORDERED: NITROGLYCERIN SL 0.4 MG TABLET SL STA (19:33)
[2020-08-07] MEDS ORDERED: NITROGLYCERIN SL 0.4 MG TABLET SL PRN (20:38)
[2020-08-07] MEDS ORDERED: SIMETHICONE CHEW 125 MG TABLET PO PRN (21:27)
[2020-08-07] MEDS ORDERED: GLUCAGON 1 MG VIAL IM PRN ×2 (21:27)
[2020-08-07] MEDS ORDERED: diphenhydrAMINE CAP 25 MG CAPSULE PO PRN (21:27)
[2020-08-07] MEDS ORDERED: ACETAMINOPHEN 325 MG TABLET PO PRN (21:27)
[2020-08-07] MEDS ORDERED: CALCIUM CARBONATE CHEW 500 MG TABLET PO PRN (21:27)
[2020-08-07] MEDS ORDERED: guaiFENesin/DM ER 600-30 MG TABLET PO PRN (21:27)
[2020-08-07] MEDS ORDERED: DEXTROSE 50% 25 GM/50 ML VIAL IV PRN ×2 (21:27)
[2020-08-07] MEDS ORDERED: PROMETHAZINE 25 MG/1 ML VIAL IM PRN (21:27)
[2020-08-07] MEDS ORDERED: NICOTINE 21 MG/24 HR PATCH TRANSDERM PRN (21:27)
[2020-08-07] MEDS ORDERED: ALUMINUM/MAGNES/SIMETH MAX STR 30 ML UDCUP PO PRN (21:27)
[2020-08-07] MEDS ORDERED: MORPHINE 4 MG/1 ML VIAL IV PRN (21:27)
[2020-08-07] MEDS ORDERED: ZALEPLON 5 MG CAPSULE PO PRN (21:27)
[2020-08-07] MEDS ORDERED: hydrALAZINE 20 MG/1 ML VIAL IV PRN (21:27)
[2020-08-07] MEDS ORDERED: ONDANSETRON 4 MG/2 ML VIAL IV PRN (21:27)
[2020-08-07] MEDS ORDERED: BISACODYL 5 MG TABLET PO PRN (21:27)
[2020-08-07] MEDS ORDERED: CLOPIDOGREL 300 MG TABLET PO ONE (22:30)
[2020-08-07] MEDS ORDERED: ENOXAPARIN 100 MG/ML SYRINGE SUBCUT SCH (22:30)
[2020-08-07] MEDS ORDERED: ALBUTEROL 2.5 MG/3 ML NEB RESP TX PRN (23:00)
[2020-08-08] MEDS: ALBUTEROL 2.5 MG/3 ML NEB RESP TX SCH ×4 (00:04→21:16)
[2020-08-08 00:56] LABS: Calcium 8.6 MG/DL (8.5-10.1); Osmolality,Calculated 276.8 MOS/KG (273-304); Risk Ratio 5.57; VLDL CHOLESTEROL 13.8 MG/DL
[2020-08-08 01:08] LABS: Basophils # 0.1 10*3/uL (0.0-0.2); Basophils % 0.9 % (0.0-0.8); Eosinophils # 0.4 10*3/uL (0.0-0.87); Hematocrit 42.2 VOL% (42.0-52.0); Hemoglobin 14.1 GM/DL (14.0-18.0); Immature Granulocytes % 0.5 %; Immature Granulocytes Absolute 0.04 #; Lymphocytes # 2.5 10*3/uL (1.4-4.0); Lymphocytes % 30.2 % (21.2-54.2); Mean Corpuscular HGB Conc 33.4 GM/DL (32-36); Mean Platelet Volume 9.6 FL (9.6-12.0); Monocytes % 8.3 % (1.7-12.7); Neutrophils % 55.1 % (38.7-73.9); Platelet Count 260 T/CUMM (130-400); Red Blood Count 4.74 MC/CUMM (3.8-5.5); White Blood Count 8.1 T/CUMM (4-12)
[2020-08-08 09:28] LABS: Troponin I 0.619 NG/ML (0.00-0.045)
[2020-08-08] MEDS: INSULIN LISPRO 100 UNIT/ML SUBCUT SCH ×4 (09:53→21:18)
[2020-08-08] MEDS: FUROSEMIDE 40 MG/4 ML VIAL IV SCH ×2 (10:05→15:37)
[2020-08-08] MEDS: ASPIRIN CHEW 81 MG TABLET PO SCH (10:05)
[2020-08-08] MEDS: ENOXAPARIN 40 MG/0.4 ML SYRINGE SUBCUT SCH (10:05)
[2020-08-08] MEDS: lisinopriL 2.5 MG TABLET PEG SCH ×2 (10:05→10:11)
[2020-08-08] MEDS: METOPROLOL TARTRATE 25 MG TABLET PO SCH ×2 (10:05→21:19)
[2020-08-08] MEDS: PANTOPRAZOLE 40 MG TABLET PO SCH (10:05)
[2020-08-08 12:16] LABS: Troponin I 0.629 NG/ML (0.00-0.045)
[2020-08-08 20:43] LABS: Barbiturates Screen,Urine Negative (Negative); Benzodiazepines Screen,Urine Negative (Negative); Cannabinoid Screen,Urine Negative (Negative); Opiate Screen,Urine Negative (Negative); Phencyclidine Screen,Urine Negative (Negative)
[2020-08-08] MEDS ORDERED: ATORVASTATIN 20 MG TABLET PO SCH (21:00)
[2020-08-08] MEDS ORDERED: ATORVASTATIN 80 MG TABLET PO SCH (21:00)
[2020-08-09] MEDS: ALBUTEROL 2.5 MG/3 ML NEB RESP TX SCH ×2 (01:13→07:35)
[2020-08-09 08:02] VITALS: BP 110/67
[2020-08-09] MEDS: INSULIN LISPRO 100 UNIT/ML SUBCUT SCH ×2 (08:42→12:03)
[2020-08-09] MEDS: FUROSEMIDE 40 MG/4 ML VIAL IV SCH (09:32)
[2020-08-09] MEDS: ASPIRIN CHEW 81 MG TABLET PO SCH (09:32)
[2020-08-09] MEDS: ENOXAPARIN 40 MG/0.4 ML SYRINGE SUBCUT SCH (09:32)
[2020-08-09] MEDS: METOPROLOL TARTRATE 25 MG TABLET PO SCH (09:33)
[2020-08-09] MEDS: PANTOPRAZOLE 40 MG TABLET PO SCH (09:33)
[2020-08-09] MEDS: lisinopriL 2.5 MG TABLET PEG SCH (09:33)
[2020-08-10] MEDS ORDERED: FUROSEMIDE 40 MG TABLET PO SCH (09:00)
== END 2020-08-09 12:22 | disposition home or self-care (01) ==
LOC: N.EDINP 18:30 → N.ED 18:30 → N.TELEN 23:00
PROVIDERS: ADMIT Internal Medicine; ATTEND Internal Medicine

== ENCOUNTER 2021-12-06 21:15 | Inpatient (IN) ==
[2021-12-06 21:51] LABS: Basophils # 0.1 10*3/uL (0.0-0.2); Basophils % 0.4 % (0.0-0.8); Eosinophils # 0.1 10*3/uL (0.0-0.87); Eosinophils % 0.5 % (0.00-10.9); Hematocrit 46.4 VOL% (42.0-52.0); Hemoglobin 14.9 GM/DL (14.0-18.0); Immature Granulocytes % 0.8 %; Immature Granulocytes Absolute 0.12 #; Lymphocytes # 1.5 10*3/uL (1.4-4.0); Lymphocytes % 9.3 % (21.2-54.2); Mean Corpuscular HGB Conc 32.1 GM/DL (32-36); Mean Corpuscular Volume 93.9 FL (87-102); Mean Platelet Volume 9.9 FL (9.6-12.0); Monocytes # 1.3 10*3/uL (0.11-0.8); Monocytes % 8.1 % (1.7-12.7); Neutrophils % 80.9 % (38.7-73.9); Platelet Count 167 T/CUMM (130-400); Red Blood Count 4.94 MC/CUMM (3.8-5.5); Red Cell Distribution Width 14.6 % (9.3-17.3); White Blood Count 15.7 T/CUMM (4-12)
[2021-12-06 22:02] LABS: INR 1.3; PT Patient Result 13.6 SECS (10.5-12.0)
[2021-12-06] MEDS ORDERED: ONDANSETRON 4 MG/2 ML VIAL IV ONE (22:15)
[2021-12-06] MEDS ORDERED: LEVOFLOXACIN INJ 750 MG/150 ML PREMIX IV STA (22:15)
[2021-12-06] MEDS ORDERED: MORPHINE 2 MG/1 ML SYRINGE IV STA (22:15)
[2021-12-06 22:18] LABS: Albumin 3.5 G/DL (3.4-5.0); Bilirubin,Total 1.4 MG/DL (0.20-1.00); Calcium 9.4 MG/DL (8.5-10.1); Osmolality,Calculated 272.1 MOS/KG (273-304); Potassium 4.2 MMOL/L (3.5-5.1); Total Protein 7.8 G/DL (6.4-8.2)
[2021-12-06] MEDS ORDERED: ALBUTEROL/IPRATROPIUM 3 ML NEB RESP TX STA (22:23)
[2021-12-06] MEDS ORDERED: DEXTROSE 50% 25 GM/50 ML VIAL IV PRN (23:23)
[2021-12-06] MEDS ORDERED: GLUCAGON 1 MG VIAL IM PRN ×2 (23:23)
[2021-12-06] MEDS ORDERED: ONDANSETRON 4 MG/2 ML VIAL IV PRN (23:23)
[2021-12-06] MEDS ORDERED: ACETAMINOPHEN 325 MG TABLET PO PRN (23:23)
[2021-12-06] MEDS ORDERED: DOCUSATE SODIUM 100 MG CAPSULE PO PRN (23:23)
[2021-12-06] MEDS ORDERED: hydrALAZINE 20 MG/1 ML VIAL IV PRN (23:23)
[2021-12-06] MEDS ORDERED: guaiFENesin/DM ER 600-30 MG TABLET PO PRN (23:23)
[2021-12-06] MEDS ORDERED: NICOTINE 21 MG/24 HR PATCH TRANSDERM PRN (23:23)
[2021-12-06] MEDS ORDERED: diphenhydrAMINE CAP 25 MG CAPSULE PO PRN (23:23)
[2021-12-06] MEDS ORDERED: DEXTROSE 10% 250 ML BAG IV PRN (23:30)
[2021-12-07] MEDS: MORPHINE 2 MG/1 ML SYRINGE IV PRN ×2 (00:20→08:35)
[2021-12-07] MEDS: ENOXAPARIN 100 MG/ML SYRINGE SUBCUT SCH ×2 (00:53→12:19)
[2021-12-07] MEDS: ALBUTEROL/IPRATROPIUM 3 ML NEB RESP TX SCH ×4 (02:00→19:40)
[2021-12-07 06:20] LABS: Basophils # 0.1 10*3/uL (0.0-0.2); Basophils % 0.3 % (0.0-0.8); Eosinophils # 0.1 10*3/uL (0.0-0.87); Eosinophils % 0.4 % (0.00-10.9); Hematocrit 45.4 VOL% (42.0-52.0); Hemoglobin 14.5 GM/DL (14.0-18.0); Immature Granulocytes % 0.4 %; Immature Granulocytes Absolute 0.06 #; Lymphocytes # 1.5 10*3/uL (1.4-4.0); Lymphocytes % 10.3 % (21.2-54.2); Mean Corpuscular HGB Conc 31.9 GM/DL (32-36); Mean Corpuscular Volume 94.4 FL (87-102); Mean Platelet Volume 10.3 FL (9.6-12.0); Monocytes # 1.6 10*3/uL (0.11-0.8); Monocytes % 10.4 % (1.7-12.7); Neutrophils % 78.2 % (38.7-73.9); Platelet Count 149 T/CUMM (130-400); Red Blood Count 4.81 MC/CUMM (3.8-5.5); Red Cell Distribution Width 14.6 % (9.3-17.3); White Blood Count 14.9 T/CUMM (4-12)
[2021-12-07 06:51] LABS: Calcium 8.9 MG/DL (8.5-10.1); Osmolality,Calculated 266.4 MOS/KG (273-304)
[2021-12-07] MEDS: INSULIN LISPRO 100 UNIT/ML SUBCUT SCH ×4 (08:34→21:07)
[2021-12-07] MEDS: PANTOPRAZOLE 40 MG TABLET PO SCH (08:37)
[2021-12-07] MEDS: METOPROLOL SUCCINATE XL 50 MG TABLET PO SCH (08:38)
[2021-12-07] MEDS: SACUBITRIL/VALSARTAN 49-51 MG TABLET PO SCH ×2 (08:38→21:07)
[2021-12-07] MEDS: FUROSEMIDE 40 MG TABLET PO SCH ×2 (08:38→21:07)
[2021-12-07] MEDS: ASPIRIN CHEW 81 MG TABLET PO SCH (08:38)
[2021-12-07] MEDS: SPIRONOLACTONE 25 MG TABLET PO SCH (08:38)
[2021-12-07] MEDS ORDERED: FUROSEMIDE 40 MG/4 ML VIAL IV ONE (13:24)
[2021-12-07] MEDS: HEPARIN 5,000 UNIT/1 ML VIAL SUBCUT SCH ×2 (18:13→18:14)
[2021-12-07] MEDS: LEVOFLOXACIN INJ 750 MG/150 ML PREMIX IV SCH (21:18)
[2021-12-08] MEDS ORDERED: SODIUM CHLORIDE 0.9% 500 ML IV ONE (00:09)
[2021-12-08] MEDS: ALBUTEROL/IPRATROPIUM 3 ML NEB RESP TX SCH ×4 (00:40→20:16)
[2021-12-08] MEDS: ENOXAPARIN 100 MG/ML SYRINGE SUBCUT SCH (02:11)
[2021-12-08 05:43] LABS: VLDL Cholesterol 9.2 MG/DL
[2021-12-08] MEDS: INSULIN LISPRO 100 UNIT/ML SUBCUT SCH ×4 (07:39→20:17)
[2021-12-08] MEDS: ASPIRIN CHEW 81 MG TABLET PO SCH (08:37)
[2021-12-08] MEDS: FUROSEMIDE 40 MG TABLET PO SCH (08:38)
[2021-12-08] MEDS: PANTOPRAZOLE 40 MG TABLET PO SCH (08:38)
[2021-12-08] MEDS: SPIRONOLACTONE 25 MG TABLET PO SCH ×2 (08:38→12:49)
[2021-12-08] MEDS: METOPROLOL SUCCINATE XL 50 MG TABLET PO SCH ×2 (08:38→12:50)
[2021-12-08] MEDS: SACUBITRIL/VALSARTAN 49-51 MG TABLET PO SCH ×2 (08:55→20:22)
[2021-12-08] MEDS: methylPREDNISolone SOD SUC 40 MG/1 ML VIAL IV SCH ×2 (10:36→15:55)
[2021-12-08] MEDS ORDERED: HEPARIN DRIP 25,000 UNITS/500 ML PREMIX IV SCH ×2 (12:00→13:30)
[2021-12-08] MEDS ORDERED: HEPARIN/NACL 0.9% 2 UNITS/ML 1,000 UNIT/500 ML BAG IV ONE ×2 (12:11→12:31)
[2021-12-08] MEDS ORDERED: MIDAZOLAM 2 MG/2 ML VIAL ONE (12:28)
[2021-12-08] MEDS ORDERED: fentaNYL 100 MCG/2 ML VIAL ONE (12:28)
[2021-12-08] MEDS ORDERED: ALTEPLASE 6 MG in SODIUM CHLORIDE 0.9% 120 ML IV SCH (13:00)
[2021-12-08] MEDS ORDERED: SODIUM CHLORIDE 0.9% 1,000 ML IV SCH ×2 (13:00)
[2021-12-08] MEDS ORDERED: HEPARIN DRIP 25,000 UNITS/500 ML PREMIX IV ONE (13:14)
[2021-12-08] MEDS: MORPHINE 2 MG/1 ML SYRINGE IV PRN ×2 (14:25→20:18)
[2021-12-08 14:30] LABS: Barbiturates Screen,Urine Negative (Negative); Benzodiazepines Screen,Urine Negative (Negative); Cannabinoid Screen,Urine Negative (Negative); Opiate Screen,Urine Positive (Negative); Phencyclidine Screen,Urine Negative (Negative)
[2021-12-08 14:36] LABS: Mucus,Urine Occasional /LPF (Occasional)
[2021-12-08 14:37] LABS: Bilirubin,Urine Negative (Negative); Blood, Urine Negative (Negative); Glucose,Urine (UA) Negative (Negative); Ketones,Urine Negative (Negative); Nitrite,Urine Negative (Negative); Protein,Urine Negative (Negative); Urine Appearance Clear (Clear); Urine Color Yellow (Yellow); Urine pH 5.5 (4.5-8.0)
[2021-12-08 14:50] LABS: INR 1.3; PT Patient Result 13.8 SECS (10.5-12.0); Partial Thromboplastin Time 40.5 SECS (23.8-32.1)
[2021-12-08] MEDS: FUROSEMIDE 40 MG/4 ML VIAL IV SCH (15:55)
[2021-12-08 17:13] LABS: INR 1.3; PT Patient Result 13.8 SECS (10.5-12.0)
[2021-12-08] MEDS: LEVOFLOXACIN INJ 750 MG/150 ML PREMIX IV SCH (22:12)
[2021-12-09] MEDS: ALBUTEROL/IPRATROPIUM 3 ML NEB RESP TX SCH ×4 (01:24→19:40)
[2021-12-09 02:02] LABS: Basophils % 0.1 % (0.0-0.8); Hematocrit 46.5 VOL% (42.0-52.0); Immature Granulocytes % 0.5 %; Immature Granulocytes Absolute 0.12 #; Lymphocytes # 0.5 10*3/uL (1.4-4.0); Lymphocytes % 2.1 % (21.2-54.2); Mean Corpuscular HGB Conc 32.3 GM/DL (32-36); Mean Corpuscular Volume 92.6 FL (87-102); Mean Platelet Volume 10.3 FL (9.6-12.0); Monocytes # 1.4 10*3/uL (0.11-0.8); Monocytes % 6.1 % (1.7-12.7); Neutrophils % 91.2 % (38.7-73.9); Platelet Count 147 T/CUMM (130-400); Red Blood Count 5.02 MC/CUMM (3.8-5.5); Red Cell Distribution Width 14.4 % (9.3-17.3); White Blood Count 22.5 T/CUMM (4-12)
[2021-12-09 02:21] LABS: Calcium 9.3 MG/DL (8.5-10.1); Osmolality,Calculated 270.7 MOS/KG (273-304); Potassium 3.8 MMOL/L (3.5-5.1)
[2021-12-09 02:22] LABS: Partial Thromboplastin Time 32.5 SECS (23.8-32.1)
[2021-12-09 02:33] LABS: INR 1.2; PT Patient Result 13.2 SECS (10.5-12.0)
[2021-12-09 03:00] LABS: Lymphocytes 2 % (20-55); Platelet Estimate Adequate; Total Cells Counted 100
[2021-12-09] MEDS: FUROSEMIDE 40 MG/4 ML VIAL IV SCH ×2 (08:13→16:29)
[2021-12-09] MEDS: INSULIN LISPRO 100 UNIT/ML SUBCUT SCH ×4 (08:13→20:03)
[2021-12-09] MEDS ORDERED: MAGNESIUM SULF RIDER 2 GM/50 ML PREMIX IV PRN (08:39)
[2021-12-09] MEDS: methylPREDNISolone SOD SUC 40 MG/1 ML VIAL IV SCH ×3 (09:24→16:29)
[2021-12-09] MEDS: METOPROLOL SUCCINATE XL 50 MG TABLET PO SCH (09:25)
[2021-12-09] MEDS: PANTOPRAZOLE 40 MG TABLET PO SCH (09:25)
[2021-12-09] MEDS: POTASSIUM CHLORIDE 20 MEQ TABLET PO PRN (09:25)
[2021-12-09] MEDS: ASPIRIN CHEW 81 MG TABLET PO SCH (09:25)
[2021-12-09] MEDS: SACUBITRIL/VALSARTAN 49-51 MG TABLET PO SCH ×2 (09:25→20:02)
[2021-12-09] MEDS: SPIRONOLACTONE 25 MG TABLET PO SCH (09:25)
[2021-12-09] MEDS: LEVOFLOXACIN 750 MG TABLET PO SCH (09:58)
[2021-12-09 13:26] LABS: Partial Thromboplastin Time 38.4 SECS (23.8-32.1)
[2021-12-09] MEDS: APIXABAN 5 MG TABLET PO SCH ×2 (14:52→20:02)
[2021-12-09] MEDS: MORPHINE 2 MG/1 ML SYRINGE IV PRN (19:29)
[2021-12-10] MEDS: methylPREDNISolone SOD SUC 40 MG/1 ML VIAL IV SCH ×3 (00:53→16:00)
[2021-12-10] MEDS: ALBUTEROL/IPRATROPIUM 3 ML NEB RESP TX SCH ×4 (02:00→19:35)
[2021-12-10 06:20] LABS: Basophils % 0.1 % (0.0-0.8); Hematocrit 45.7 VOL% (42.0-52.0); Hemoglobin 14.8 GM/DL (14.0-18.0); Immature Granulocytes % 0.8 %; Immature Granulocytes Absolute 0.18 #; Lymphocytes # 0.5 10*3/uL (1.4-4.0); Lymphocytes % 2.2 % (21.2-54.2); Mean Corpuscular HGB Conc 32.4 GM/DL (32-36); Mean Corpuscular Volume 93.3 FL (87-102); Mean Platelet Volume 10.2 FL (9.6-12.0); Monocytes # 1.1 10*3/uL (0.11-0.8); Monocytes % 4.6 % (1.7-12.7); Neutrophils % 92.3 % (38.7-73.9); Platelet Count 190 T/CUMM (130-400); Red Cell Distribution Width 14.6 % (9.3-17.3)
[2021-12-10 06:32] LABS: Calcium 9.2 MG/DL (8.5-10.1); Osmolality,Calculated 279.4 MOS/KG (273-304); Potassium 3.6 MMOL/L (3.5-5.1)
[2021-12-10 06:43] LABS: Lymphocytes 2 % (20-55); Total Cells Counted 100
[2021-12-10 06:44] LABS: Hypochromia Slight; Platelet Estimate Adequate
[2021-12-10] MEDS: APIXABAN 5 MG TABLET PO SCH ×2 (08:41→20:30)
[2021-12-10] MEDS: INSULIN LISPRO 100 UNIT/ML SUBCUT SCH ×5 (08:41→20:39)
[2021-12-10] MEDS: ASPIRIN CHEW 81 MG TABLET PO SCH (08:41)
[2021-12-10] MEDS: FUROSEMIDE 40 MG/4 ML VIAL IV SCH (08:41)
[2021-12-10] MEDS: SPIRONOLACTONE 25 MG TABLET PO SCH (08:41)
[2021-12-10] MEDS: METOPROLOL SUCCINATE XL 50 MG TABLET PO SCH (08:42)
[2021-12-10] MEDS: SACUBITRIL/VALSARTAN 49-51 MG TABLET PO SCH ×2 (08:42→20:30)
[2021-12-10] MEDS: LEVOFLOXACIN 750 MG TABLET PO SCH (08:42)
[2021-12-10] MEDS: PANTOPRAZOLE 40 MG TABLET PO SCH (08:42)
[2021-12-10] MEDS: POTASSIUM CHLORIDE 20 MEQ TABLET PO PRN ×2 (20:30→22:28)
[2021-12-11] MEDS: methylPREDNISolone SOD SUC 40 MG/1 ML VIAL IV SCH ×2 (00:04→08:10)
[2021-12-11] MEDS: ALBUTEROL/IPRATROPIUM 3 ML NEB RESP TX SCH ×2 (00:08→06:42)
[2021-12-11 04:31] LABS: Basophils % 0.2 % (0.0-0.8); Hematocrit 45.6 VOL% (42.0-52.0); Hemoglobin 14.7 GM/DL (14.0-18.0); Immature Granulocytes % 0.6 %; Immature Granulocytes Absolute 0.11 #; Lymphocytes # 0.5 10*3/uL (1.4-4.0); Lymphocytes % 2.8 % (21.2-54.2); Mean Corpuscular HGB Conc 32.2 GM/DL (32-36); Mean Corpuscular Volume 93.1 FL (87-102); Mean Platelet Volume 9.8 FL (9.6-12.0); Monocytes # 1.3 10*3/uL (0.11-0.8); Monocytes % 6.8 % (1.7-12.7); Neutrophils % 89.6 % (38.7-73.9); Platelet Count 175 T/CUMM (130-400); Red Cell Distribution Width 14.4 % (9.3-17.3); White Blood Count 18.9 T/CUMM (4-12)
[2021-12-11 04:47] LABS: Calcium 9.4 MG/DL (8.5-10.1); Osmolality,Calculated 282.2 MOS/KG (273-304); Potassium 3.8 MMOL/L (3.5-5.1)
[2021-12-11 05:00] LABS: Lymphocytes 2 % (20-55); Platelet Estimate Adequate; Total Cells Counted 100
[2021-12-11] MEDS: SACUBITRIL/VALSARTAN 49-51 MG TABLET PO SCH (08:10)
[2021-12-11] MEDS: PANTOPRAZOLE 40 MG TABLET PO SCH (08:10)
[2021-12-11] MEDS: LEVOFLOXACIN 750 MG TABLET PO SCH (08:10)
[2021-12-11] MEDS: FUROSEMIDE 40 MG TABLET PO SCH (08:10)
[2021-12-11] MEDS: INSULIN LISPRO 100 UNIT/ML SUBCUT SCH ×2 (08:10→11:35)
[2021-12-11] MEDS: METOPROLOL SUCCINATE XL 50 MG TABLET PO SCH (08:10)
[2021-12-11] MEDS: ASPIRIN CHEW 81 MG TABLET PO SCH (08:10)
[2021-12-11] MEDS: SPIRONOLACTONE 25 MG TABLET PO SCH (08:10)
[2021-12-11] MEDS: APIXABAN 5 MG TABLET PO SCH (08:10)
[2021-12-11 14:26] VITALS: BP 97/46
[2021-12-16] MEDS ORDERED: APIXABAN 5 MG TABLET PO SCH (09:00)
== END 2021-12-11 15:00 | disposition home or self-care (01) | DRG 121 ==
LOC: N.ED 21:15 → N.EDINP 23:23 → N.5E 12-07 04:09 → N.ICU 12-08 14:00
PROVIDERS: ADMIT Internal Medicine; ATTEND Internal Medicine

== ENCOUNTER 2022-08-03 09:52 | Inpatient (IN) ==
[2022-08-03 10:44] LABS: Basophils # 0.1 10*3/uL (0.0-0.2); Basophils % 0.5 % (0.0-0.8); Eosinophils # 0.1 10*3/uL (0.0-0.87); Eosinophils % 0.5 % (0.00-10.9); Hematocrit 43.1 VOL% (42.0-52.0); Hemoglobin 13.7 GM/DL (14.0-18.0); Immature Granulocytes % 0.9 %; Immature Granulocytes Absolute 0.13 #; Lymphocytes # 1.1 10*3/uL (1.4-4.0); Lymphocytes % 7.5 % (21.2-54.2); Mean Corpuscular HGB Conc 31.8 GM/DL (32-36); Mean Corpuscular Volume 88.3 FL (87-102); Mean Platelet Volume 9.8 FL (9.6-12.0); Monocytes # 1.4 10*3/uL (0.11-0.8); Monocytes % 9.7 % (1.7-12.7); NRBC # 0.03 10*3/uL; Neutrophils % 80.9 % (38.7-73.9); Platelet Count 148 T/CUMM (130-400); Red Blood Count 4.88 MC/CUMM (3.8-5.5); Red Cell Distribution Width 20.9 % (9.3-17.3); White Blood Count 14.1 T/CUMM (4-12)
[2022-08-03 11:07] LABS: Alanine Aminotransferase 25 U/L (16-61); Alkaline Phosphatase 151 U/L (45-117); Aspartate Amino Transferase 38 U/L (0-37); Blood Urea Nitrogen 33 MG/DL (7-18); Calcium 8.6 MG/DL (8.5-10.1); Carbon Dioxide 31 MMOL/L (21-32); Chloride 90 MMOL/L (98-107); Glucose 218 MG/DL (74-106); Osmolality,Calculated 271.9 MOS/KG (273-304); Potassium 2.9 MMOL/L (3.5-5.1); Sodium 129 MMOL/L (136-145); Total Protein 7.4 G/DL (6.4-8.2)
[2022-08-03 11:14] LABS: INR 1.6; Partial Thromboplastin Time 33.3 SECS (23.7-32.9)
[2022-08-03] MEDS ORDERED: SODIUM CHLORIDE 0.9% 1,000 ML IV STA (11:26)
[2022-08-03] MEDS ORDERED: PIPERACILLIN/TAZOBACTAM 3,375 MG in SODIUM CHLORIDE 0.9% 100 ML IV STA (11:26)
[2022-08-03 12:48] LABS: Arterial Base Excess iSTAT 4 MMOL/L (-2.5-2.5); Arterial Bicarbonate iSTAT 28.8 MMOL/L (20-26); Arterial O2 Saturation iSTAT 99 % (95-100); Arterial PCO2 iSTAT 41 MM HG (35-48); Arterial PO2 iSTAT 130 MM HG (80-95); Arterial Total CO2 iSTAT 30 MMO/L (23-27); Arterial pH iSTAT 7.458 (7.35-7.45)
[2022-08-03] MEDS ORDERED: HEPARIN 5,000 UNIT/1 ML VIAL IV ONE (13:50)
[2022-08-03] MEDS ORDERED: HEPARIN DRIP 25,000 UNITS/500 ML PREMIX IV SCH (14:00)
[2022-08-03] MEDS ORDERED: hydrALAZINE 20 MG/1 ML VIAL IV PRN (14:35)
[2022-08-03] MEDS ORDERED: DOCUSATE SODIUM 100 MG CAPSULE PO PRN (14:35)
[2022-08-03] MEDS ORDERED: ACETAMINOPHEN 325 MG TABLET PO PRN (14:35)
[2022-08-03] MEDS ORDERED: ONDANSETRON 4 MG/2 ML VIAL IV PRN (14:35)
[2022-08-03] MEDS ORDERED: FUROSEMIDE 40 MG/4 ML VIAL IV STA (14:43)
[2022-08-03 16:24] LABS: Hyaline Casts,Urine 4 /LPF (0-3); Mucus,Urine Occasional /LPF (Occasional); RBC,Urine <1 /HPF (0-4)
[2022-08-03 16:25] LABS: Bilirubin,Urine Moderate mg/dL (Negative); Blood, Urine Trace mg/dL (Negative); Glucose,Urine (UA) 100 mg/dL (Negative); Ketones,Urine Negative (Negative); Nitrite,Urine Negative (Negative); Protein,Urine >=300 mg/dL (Negative); Urine Appearance Clear (Clear); Urine Color Yellow (Yellow); Urine Specific Gravity >= 1.030 (1.001-1.035); Urine pH 5.5 (4.5-8.0)
[2022-08-03 16:32] LABS: Barbiturates Screen,Urine Negative (Negative); Benzodiazepines Screen,Urine Negative (Negative); Cannabinoid Screen,Urine Negative (Negative); Opiate Screen,Urine Negative (Negative); Phencyclidine Screen,Urine Negative (Negative)
[2022-08-03] MEDS ORDERED: MAGNESIUM SULF RIDER 4 GM/100 ML PREMIX IV PRN (16:37)
[2022-08-03] MEDS ORDERED: MAGNESIUM SULF RIDER 2 GM/50 ML PREMIX IV PRN (16:37)
[2022-08-03] MEDS ORDERED: POTASSIUM CHLORIDE 20 MEQ TABLET PO ONE ×3 (16:42→23:00)
[2022-08-03] MEDS ORDERED: GLUCAGON 1 MG VIAL IM PRN (16:43)
[2022-08-03] MEDS ORDERED: DEXTROSE 10% 250 ML BAG IV PRN (16:43)
[2022-08-03] MEDS ORDERED: NITROGLYCERIN SL 0.4 MG TABLET SL PRN (16:47)
[2022-08-03] MEDS: ALBUTEROL 2.5 MG/3 ML NEB RESP TX SCH (19:50)
[2022-08-03] MEDS: MORPHINE 2 MG/1 ML SYRINGE IV PRN (22:11)
[2022-08-03] MEDS: SACUBITRIL/VALSARTAN 49-51 MG TABLET PO SCH (22:15)
[2022-08-03] MEDS: guaiFENesin/DM ER 600-30 MG TABLET PO SCH (22:15)
[2022-08-03] MEDS: PIPERACILLIN/TAZOBACTAM 3,375 MG in SODIUM CHLORIDE 0.9% 100 ML IV SCH (22:19)
[2022-08-03] MEDS: INSULIN REGULAR 100 UNIT/ML SUBCUT SCH (22:20)
[2022-08-04] MEDS: ALBUTEROL 2.5 MG/3 ML NEB RESP TX SCH ×4 (00:10→19:18)
[2022-08-04] MEDS: MORPHINE 2 MG/1 ML SYRINGE IV PRN (03:05)
[2022-08-04] MEDS: HEPARIN DRIP 25,000 UNITS/500 ML PREMIX IV SCH (04:16)
[2022-08-04] MEDS: PIPERACILLIN/TAZOBACTAM 3,375 MG in SODIUM CHLORIDE 0.9% 100 ML IV SCH ×3 (04:25→21:25)
[2022-08-04 04:37] LABS: Basophils # 0.1 10*3/uL (0.0-0.2); Basophils % 0.4 % (0.0-0.8); Eosinophils # 0.2 10*3/uL (0.0-0.87); Hematocrit 39.8 VOL% (42.0-52.0); Hemoglobin 12.9 GM/DL (14.0-18.0); Immature Granulocytes % 0.5 %; Immature Granulocytes Absolute 0.09 #; Lymphocytes # 1.1 10*3/uL (1.4-4.0); Lymphocytes % 6.7 % (21.2-54.2); Mean Corpuscular HGB Conc 32.4 GM/DL (32-36); Mean Corpuscular Volume 89.2 FL (87-102); Mean Platelet Volume 10.1 FL (9.6-12.0); Monocytes # 1.3 10*3/uL (0.11-0.8); Monocytes % 7.8 % (1.7-12.7); Neutrophils % 83.6 % (38.7-73.9); Platelet Count 152 T/CUMM (130-400); Red Blood Count 4.46 MC/CUMM (3.8-5.5); Red Cell Distribution Width 20.7 % (9.3-17.3); White Blood Count 16.5 T/CUMM (4-12)
[2022-08-04 05:06] LABS: Osmolality,Calculated 275.4 MOS/KG (273-304); Potassium 3.4 MMOL/L (3.5-5.1); Thyroid Stimulating Hormone 5.96 uIU/ml (0.358-3.74)
[2022-08-04] MEDS: METOPROLOL SUCCINATE XL 50 MG TABLET PO SCH ×2 (09:30)
[2022-08-04] MEDS: SACUBITRIL/VALSARTAN 49-51 MG TABLET PO SCH (09:30)
[2022-08-04] MEDS: allopurinoL 100 MG TABLET PO SCH (09:30)
[2022-08-04] MEDS: SPIRONOLACTONE 25 MG TABLET PO SCH (09:30)
[2022-08-04] MEDS: ATORVASTATIN 80 MG TABLET PO SCH (09:30)
[2022-08-04] MEDS: PANTOPRAZOLE 40 MG TABLET PO SCH (09:30)
[2022-08-04] MEDS: ASPIRIN CHEW 81 MG TABLET PO SCH (09:30)
[2022-08-04] MEDS: guaiFENesin/DM ER 600-30 MG TABLET PO SCH ×2 (09:30→21:22)
[2022-08-04] MEDS: DAPAGLIFLOZIN 10 MG TABLET PO SCH (09:30)
[2022-08-04] MEDS: FUROSEMIDE 40 MG/4 ML VIAL IV SCH (09:41)
[2022-08-04] MEDS: NICOTINE 21 MG/24 HR PATCH TRANSDERM SCH (09:42)
[2022-08-04] MEDS: INSULIN REGULAR 100 UNIT/ML SUBCUT SCH ×4 (09:55→21:17)
[2022-08-04] MEDS: metOLazone 5 MG TABLET PO SCH (10:40)
[2022-08-04] MEDS ORDERED: SODIUM CHLORIDE 0.9% 500 ML IV ONE (11:07)
[2022-08-05] MEDS: ALBUTEROL 2.5 MG/3 ML NEB RESP TX SCH ×4 (01:10→19:19)
[2022-08-05] MEDS: MORPHINE 2 MG/1 ML SYRINGE IV PRN ×3 (02:19→22:02)
[2022-08-05] MEDS: HEPARIN DRIP 25,000 UNITS/500 ML PREMIX IV SCH (03:29)
[2022-08-05] MEDS: PIPERACILLIN/TAZOBACTAM 3,375 MG in SODIUM CHLORIDE 0.9% 100 ML IV SCH ×3 (04:05→20:19)
[2022-08-05 05:18] LABS: Basophils # 0.1 10*3/uL (0.0-0.2); Basophils % 0.3 % (0.0-0.8); Eosinophils # 0.7 10*3/uL (0.0-0.87); Eosinophils % 4.4 % (0.00-10.9); Hematocrit 41.9 VOL% (42.0-52.0); Hemoglobin 13.2 GM/DL (14.0-18.0); Immature Granulocytes % 0.7 %; Immature Granulocytes Absolute 0.11 #; Lymphocytes # 0.8 10*3/uL (1.4-4.0); Mean Corpuscular HGB Conc 31.5 GM/DL (32-36); Mean Corpuscular Volume 91.1 FL (87-102); Mean Platelet Volume 9.9 FL (9.6-12.0); Monocytes # 1.2 10*3/uL (0.11-0.8); Monocytes % 7.3 % (1.7-12.7); Neutrophils % 82.3 % (38.7-73.9); Platelet Count 156 T/CUMM (130-400); Red Cell Distribution Width 21.2 % (9.3-17.3); White Blood Count 15.7 T/CUMM (4-12)
[2022-08-05 05:57] LABS: Osmolality,Calculated 277.4 MOS/KG (273-304); Potassium 3.1 MMOL/L (3.5-5.1)
[2022-08-05] MEDS ORDERED: POTASSIUM CHLORIDE 20 MEQ TABLET PO ONE (08:23)
[2022-08-05] MEDS: DAPAGLIFLOZIN 10 MG TABLET PO SCH (09:10)
[2022-08-05] MEDS: SPIRONOLACTONE 25 MG TABLET PO SCH (09:11)
[2022-08-05] MEDS: metOLazone 5 MG TABLET PO SCH (09:11)
[2022-08-05] MEDS: ASPIRIN CHEW 81 MG TABLET PO SCH (09:11)
[2022-08-05] MEDS: guaiFENesin/DM ER 600-30 MG TABLET PO SCH ×2 (09:11→20:17)
[2022-08-05] MEDS: allopurinoL 100 MG TABLET PO SCH (09:11)
[2022-08-05] MEDS: PANTOPRAZOLE 40 MG TABLET PO SCH (09:11)
[2022-08-05] MEDS: ATORVASTATIN 80 MG TABLET PO SCH (09:11)
[2022-08-05] MEDS: FUROSEMIDE 40 MG/4 ML VIAL IV SCH (10:32)
[2022-08-05] MEDS: INSULIN REGULAR 100 UNIT/ML SUBCUT SCH ×4 (10:32→22:03)
[2022-08-05] MEDS: NICOTINE 21 MG/24 HR PATCH TRANSDERM SCH (10:32)
[2022-08-05 17:53] LABS: INR 1.2; PT Patient Result 13.3 SECS (10.1-12.1)
[2022-08-06] MEDS: ALBUTEROL 2.5 MG/3 ML NEB RESP TX SCH ×4 (00:13→19:02)
[2022-08-06] MEDS: HEPARIN DRIP 25,000 UNITS/500 ML PREMIX IV SCH ×2 (00:15→05:10)
[2022-08-06] MEDS: PIPERACILLIN/TAZOBACTAM 3,375 MG in SODIUM CHLORIDE 0.9% 100 ML IV SCH ×3 (03:45→21:21)
[2022-08-06] MEDS: MORPHINE 2 MG/1 ML SYRINGE IV PRN ×2 (03:46→09:01)
[2022-08-06 06:14] LABS: Basophils # 0.1 10*3/uL (0.0-0.2); Basophils % 0.3 % (0.0-0.8); Eosinophils # 0.6 10*3/uL (0.0-0.87); Eosinophils % 3.9 % (0.00-10.9); Hematocrit 40.1 VOL% (42.0-52.0); Hemoglobin 12.6 GM/DL (14.0-18.0); Immature Granulocytes % 0.5 %; Immature Granulocytes Absolute 0.08 #; Lymphocytes # 0.7 10*3/uL (1.4-4.0); Mean Corpuscular HGB Conc 31.4 GM/DL (32-36); Mean Corpuscular Volume 91.8 FL (87-102); Mean Platelet Volume 9.9 FL (9.6-12.0); Monocytes # 1.2 10*3/uL (0.11-0.8); Monocytes % 7.6 % (1.7-12.7); Neutrophils % 83.7 % (38.7-73.9); Platelet Count 175 T/CUMM (130-400); Red Blood Count 4.37 MC/CUMM (3.8-5.5); White Blood Count 16.1 T/CUMM (4-12)
[2022-08-06 06:32] LABS: Calcium 7.7 MG/DL (8.5-10.1); Osmolality,Calculated 272.7 MOS/KG (273-304); Potassium 3.5 MMOL/L (3.5-5.1)
[2022-08-06 06:44] LABS: Calcium 7.6 MG/DL (8.5-10.1); Osmolality,Calculated 276.4 MOS/KG (273-304); Potassium 3.8 MMOL/L (3.5-5.1)
[2022-08-06 06:57] LABS: Anisocytosis 1+; Band Neutrophils 9 % (0-10); Burr Cells Few; Eosinophils 3 % (0-10); Lymphocytes 7 % (20-55); Macrocytosis 1+; Platelet Estimate Normal; Total Cells Counted 100
[2022-08-06] MEDS ORDERED: DIAZEPAM 5 MG TABLET PO ONE (08:30)
[2022-08-06] MEDS: FUROSEMIDE 40 MG/4 ML VIAL IV SCH (09:01)
[2022-08-06] MEDS: INSULIN REGULAR 100 UNIT/ML SUBCUT SCH ×4 (09:01→20:45)
[2022-08-06] MEDS: ASPIRIN CHEW 81 MG TABLET PO SCH (09:41)
[2022-08-06] MEDS: guaiFENesin/DM ER 600-30 MG TABLET PO SCH ×2 (09:41→21:20)
[2022-08-06] MEDS: PANTOPRAZOLE 40 MG TABLET PO SCH (09:41)
[2022-08-06] MEDS: SPIRONOLACTONE 25 MG TABLET PO SCH (09:41)
[2022-08-06] MEDS: allopurinoL 100 MG TABLET PO SCH (09:41)
[2022-08-06] MEDS: DAPAGLIFLOZIN 10 MG TABLET PO SCH (09:41)
[2022-08-06] MEDS: ATORVASTATIN 80 MG TABLET PO SCH (09:42)
[2022-08-06] MEDS: SODIUM CHLORIDE 0.45% 1,000 ML IV SCH (09:44)
[2022-08-06] MEDS: NICOTINE 21 MG/24 HR PATCH TRANSDERM SCH (10:46)
[2022-08-06] MEDS: metOLazone 5 MG TABLET PO SCH (10:46)
[2022-08-06] MEDS: COLLAGENASE OINT 30 GM TUBE TOP SCH (11:51)
[2022-08-06] MEDS: RIVAROXABAN 15 MG TABLET PO SCH ×2 (11:51→16:19)
[2022-08-06] MEDS: LINEZOLID INJ 600 MG/300 ML PREMIX IV SCH (14:09)
[2022-08-07] MEDS: LINEZOLID INJ 600 MG/300 ML PREMIX IV SCH ×2 (01:01→14:54)
[2022-08-07] MEDS: ALBUTEROL 2.5 MG/3 ML NEB RESP TX SCH ×4 (01:26→19:50)
[2022-08-07] MEDS: PIPERACILLIN/TAZOBACTAM 3,375 MG in SODIUM CHLORIDE 0.9% 100 ML IV SCH ×3 (04:15→20:00)
[2022-08-07 05:16] LABS: Basophils # 0.1 10*3/uL (0.0-0.2); Basophils % 0.3 % (0.0-0.8); Eosinophils # 0.6 10*3/uL (0.0-0.87); Eosinophils % 4.3 % (0.00-10.9); Hematocrit 38.3 VOL% (42.0-52.0); Hemoglobin 12.2 GM/DL (14.0-18.0); Immature Granulocytes % 0.5 %; Immature Granulocytes Absolute 0.07 #; Lymphocytes # 0.7 10*3/uL (1.4-4.0); Lymphocytes % 5.2 % (21.2-54.2); Mean Corpuscular HGB Conc 31.9 GM/DL (32-36); Mean Corpuscular Volume 89.9 FL (87-102); Mean Platelet Volume 9.7 FL (9.6-12.0); Monocytes # 1.3 10*3/uL (0.11-0.8); Neutrophils % 80.7 % (38.7-73.9); Platelet Count 175 T/CUMM (130-400); Red Blood Count 4.26 MC/CUMM (3.8-5.5); Red Cell Distribution Width 21.1 % (9.3-17.3); White Blood Count 14.3 T/CUMM (4-12)
[2022-08-07 05:33] LABS: Calcium 7.5 MG/DL (8.5-10.1); Osmolality,Calculated 278.5 MOS/KG (273-304); Potassium 3.3 MMOL/L (3.5-5.1)
[2022-08-07] MEDS ORDERED: POTASSIUM BICARB EFFERVESCENT 20 MEQ TAB.EFF PO ONE (06:08)
[2022-08-07] MEDS: RIVAROXABAN 15 MG TABLET PO SCH ×2 (08:48→16:24)
[2022-08-07] MEDS: ASPIRIN CHEW 81 MG TABLET PO SCH (08:48)
[2022-08-07] MEDS: DAPAGLIFLOZIN 10 MG TABLET PO SCH (08:48)
[2022-08-07] MEDS: metOLazone 5 MG TABLET PO SCH (08:48)
[2022-08-07] MEDS: guaiFENesin/DM ER 600-30 MG TABLET PO SCH ×2 (08:49→20:00)
[2022-08-07] MEDS: PANTOPRAZOLE 40 MG TABLET PO SCH (08:49)
[2022-08-07] MEDS: allopurinoL 100 MG TABLET PO SCH (08:49)
[2022-08-07] MEDS: SPIRONOLACTONE 25 MG TABLET PO SCH (08:49)
[2022-08-07] MEDS: ATORVASTATIN 80 MG TABLET PO SCH (08:49)
[2022-08-07] MEDS: INSULIN REGULAR 100 UNIT/ML SUBCUT SCH ×4 (10:28→21:27)
[2022-08-07] MEDS: NICOTINE 21 MG/24 HR PATCH TRANSDERM SCH (10:47)
[2022-08-07] MEDS: SODIUM CHLORIDE 0.45% 1,000 ML IV SCH (10:47)
[2022-08-07] MEDS: COLLAGENASE OINT 30 GM TUBE TOP SCH (10:48)
[2022-08-07] MEDS: FUROSEMIDE 40 MG/4 ML VIAL IV SCH (11:30)
[2022-08-07] MEDS ORDERED: SODIUM CHLORIDE 0.9% 250 ML IV ONE (12:12)
[2022-08-08] MEDS: LINEZOLID INJ 600 MG/300 ML PREMIX IV SCH ×2 (00:05→13:15)
[2022-08-08] MEDS: ALBUTEROL 2.5 MG/3 ML NEB RESP TX SCH ×4 (00:23→18:40)
[2022-08-08] MEDS: MORPHINE 2 MG/1 ML SYRINGE IV PRN (03:50)
[2022-08-08] MEDS: PIPERACILLIN/TAZOBACTAM 3,375 MG in SODIUM CHLORIDE 0.9% 100 ML IV SCH ×3 (04:12→20:12)
[2022-08-08 05:41] LABS: Osmolality,Calculated 283.2 MOS/KG (273-304); Potassium 3.5 MMOL/L (3.5-5.1)
[2022-08-08 08:24] LABS: Basophils % 0.3 % (0.0-0.8); Eosinophils # 0.6 10*3/uL (0.0-0.87); Eosinophils % 4.7 % (0.00-10.9); Hematocrit 38.6 VOL% (42.0-52.0); Hemoglobin 12.2 GM/DL (14.0-18.0); Immature Granulocytes % 0.6 %; Immature Granulocytes Absolute 0.08 #; Lymphocytes # 0.6 10*3/uL (1.4-4.0); Lymphocytes % 4.2 % (21.2-54.2); Mean Corpuscular HGB Conc 31.6 GM/DL (32-36); Mean Corpuscular Volume 89.4 FL (87-102); Mean Platelet Volume 9.8 FL (9.6-12.0); Monocytes % 7.4 % (1.7-12.7); Neutrophils % 82.8 % (38.7-73.9); Platelet Count 202 T/CUMM (130-400); Red Blood Count 4.32 MC/CUMM (3.8-5.5); Red Cell Distribution Width 20.9 % (9.3-17.3); White Blood Count 13.5 T/CUMM (4-12)
[2022-08-08 08:52] LABS: Platelet Estimate Adequate
[2022-08-08] MEDS: SPIRONOLACTONE 25 MG TABLET PO SCH (09:52)
[2022-08-08] MEDS: ATORVASTATIN 80 MG TABLET PO SCH (09:52)
[2022-08-08] MEDS: ASPIRIN CHEW 81 MG TABLET PO SCH (09:52)
[2022-08-08] MEDS: guaiFENesin/DM ER 600-30 MG TABLET PO SCH ×2 (09:53→20:12)
[2022-08-08] MEDS: metOLazone 5 MG TABLET PO SCH (09:53)
[2022-08-08] MEDS: allopurinoL 100 MG TABLET PO SCH (09:53)
[2022-08-08] MEDS: DAPAGLIFLOZIN 10 MG TABLET PO SCH (09:53)
[2022-08-08] MEDS: PANTOPRAZOLE 40 MG TABLET PO SCH (09:53)
[2022-08-08] MEDS: RIVAROXABAN 15 MG TABLET PO SCH ×2 (09:56→16:29)
[2022-08-08] MEDS: NICOTINE 21 MG/24 HR PATCH TRANSDERM SCH (10:14)
[2022-08-08] MEDS: INSULIN REGULAR 100 UNIT/ML SUBCUT SCH ×4 (10:15→21:46)
[2022-08-08] MEDS: FUROSEMIDE 40 MG/4 ML VIAL IV SCH (10:21)
[2022-08-08] MEDS: COLLAGENASE OINT 30 GM TUBE TOP SCH (10:40)
[2022-08-09] MEDS: ALBUTEROL 2.5 MG/3 ML NEB RESP TX SCH ×4 (00:25→19:34)
[2022-08-09] MEDS: LINEZOLID INJ 600 MG/300 ML PREMIX IV SCH ×2 (01:40→13:18)
[2022-08-09] MEDS: PIPERACILLIN/TAZOBACTAM 3,375 MG in SODIUM CHLORIDE 0.9% 100 ML IV SCH ×3 (03:41→22:01)
[2022-08-09 05:42] LABS: Basophils % 0.3 % (0.0-0.8); Eosinophils # 0.6 10*3/uL (0.0-0.87); Eosinophils % 6.4 % (0.00-10.9); Hematocrit 37.2 VOL% (42.0-52.0); Immature Granulocytes % 0.9 %; Immature Granulocytes Absolute 0.08 #; Lymphocytes # 0.6 10*3/uL (1.4-4.0); Lymphocytes % 6.5 % (21.2-54.2); Mean Corpuscular HGB Conc 32.3 GM/DL (32-36); Mean Corpuscular Volume 88.6 FL (87-102); Mean Platelet Volume 9.5 FL (9.6-12.0); Monocytes % 10.3 % (1.7-12.7); Neutrophils % 75.6 % (38.7-73.9); Platelet Count 220 T/CUMM (130-400); Red Cell Distribution Width 20.9 % (9.3-17.3); White Blood Count 9.4 T/CUMM (4-12)
[2022-08-09 05:56] LABS: Calcium 8.4 MG/DL (8.5-10.1); Osmolality,Calculated 281.4 MOS/KG (273-304); Potassium 3.4 MMOL/L (3.5-5.1)
[2022-08-09] MEDS: INSULIN REGULAR 100 UNIT/ML SUBCUT SCH ×4 (08:41→21:10)
[2022-08-09] MEDS ORDERED: POTASSIUM CHLORIDE 20 MEQ TABLET PO ONE ×2 (09:01→09:32)
[2022-08-09] MEDS: SPIRONOLACTONE 25 MG TABLET PO SCH (09:54)
[2022-08-09] MEDS: guaiFENesin/DM ER 600-30 MG TABLET PO SCH ×2 (09:55→22:02)
[2022-08-09] MEDS: ATORVASTATIN 80 MG TABLET PO SCH (09:56)
[2022-08-09] MEDS: FUROSEMIDE 40 MG TABLET PO SCH (09:56)
[2022-08-09] MEDS: PANTOPRAZOLE 40 MG TABLET PO SCH (09:56)
[2022-08-09] MEDS: metOLazone 5 MG TABLET PO SCH (09:56)
[2022-08-09] MEDS: ASPIRIN CHEW 81 MG TABLET PO SCH (09:56)
[2022-08-09] MEDS: RIVAROXABAN 15 MG TABLET PO SCH ×2 (09:56→17:28)
[2022-08-09] MEDS: DAPAGLIFLOZIN 10 MG TABLET PO SCH (09:56)
[2022-08-09] MEDS: allopurinoL 100 MG TABLET PO SCH (09:56)
[2022-08-09] MEDS ORDERED: DIAZEPAM 5 MG TABLET PO ONE (09:59)
[2022-08-09] MEDS: COLLAGENASE OINT 30 GM TUBE TOP SCH (11:25)
[2022-08-09] MEDS: NICOTINE 21 MG/24 HR PATCH TRANSDERM SCH (15:06)
[2022-08-10] MEDS: ALBUTEROL 2.5 MG/3 ML NEB RESP TX SCH ×3 (00:17→13:50)
[2022-08-10] MEDS: LINEZOLID INJ 600 MG/300 ML PREMIX IV SCH ×3 (01:34→13:52)
[2022-08-10] MEDS: PIPERACILLIN/TAZOBACTAM 3,375 MG in SODIUM CHLORIDE 0.9% 100 ML IV SCH ×2 (04:27→11:52)
[2022-08-10 06:10] LABS: Basophils # 0.1 10*3/uL (0.0-0.2); Basophils % 0.6 % (0.0-0.8); Eosinophils # 0.6 10*3/uL (0.0-0.87); Eosinophils % 7.4 % (0.00-10.9); Hematocrit 36.7 VOL% (42.0-52.0); Hemoglobin 11.5 GM/DL (14.0-18.0); Immature Granulocytes % 0.7 %; Immature Granulocytes Absolute 0.06 #; Lymphocytes % 11.2 % (21.2-54.2); Mean Corpuscular HGB Conc 31.3 GM/DL (32-36); Mean Corpuscular Volume 89.5 FL (87-102); Mean Platelet Volume 8.9 FL (9.6-12.0); Monocytes # 0.9 10*3/uL (0.11-0.8); Neutrophils % 70.1 % (38.7-73.9); Platelet Count 250 T/CUMM (130-400); Red Cell Distribution Width 21.2 % (9.3-17.3); White Blood Count 8.5 T/CUMM (4-12)
[2022-08-10 06:32] LABS: Calcium 8.4 MG/DL (8.5-10.1); Osmolality,Calculated 278.1 MOS/KG (273-304); Potassium 3.6 MMOL/L (3.5-5.1)
[2022-08-10] MEDS ORDERED: MAGNESIUM SULF RIDER 2 GM/50 ML PREMIX IV ONE (08:01)
[2022-08-10] MEDS ORDERED: POTASSIUM CHLORIDE 20 MEQ TABLET PO ONE (08:51)
[2022-08-10] MEDS ORDERED: SKIN HEALING OINT (AQUAPHOR) 50 GM TUBE TOP SCH (09:00)
[2022-08-10] MEDS: NICOTINE 21 MG/24 HR PATCH TRANSDERM SCH (09:51)
[2022-08-10] MEDS: INSULIN REGULAR 100 UNIT/ML SUBCUT SCH ×3 (09:51→17:03)
[2022-08-10] MEDS: ATORVASTATIN 80 MG TABLET PO SCH (09:52)
[2022-08-10] MEDS: FUROSEMIDE 40 MG TABLET PO SCH (09:52)
[2022-08-10] MEDS: RIVAROXABAN 15 MG TABLET PO SCH ×2 (09:52→17:20)
[2022-08-10] MEDS: PANTOPRAZOLE 40 MG TABLET PO SCH (09:52)
[2022-08-10] MEDS: allopurinoL 100 MG TABLET PO SCH (09:52)
[2022-08-10] MEDS: ASPIRIN CHEW 81 MG TABLET PO SCH (09:52)
[2022-08-10] MEDS: METOPROLOL SUCCINATE XL 50 MG TABLET PO SCH (09:52)
[2022-08-10] MEDS: DAPAGLIFLOZIN 10 MG TABLET PO SCH (09:52)
[2022-08-10] MEDS: guaiFENesin/DM ER 600-30 MG TABLET PO SCH (09:52)
[2022-08-10 12:54] VITALS: BP 121/76
[2022-08-10] MEDS: COLLAGENASE OINT 30 GM TUBE TOP SCH (13:27)
== END 2022-08-10 18:00 | DRG 871 ==
LOC: N.ED 09:52 → SUATTDRO 14:35 → N.EDINP 14:35 → N.TELEN 08-04 22:32
PROVIDERS: ADMIT Family Medicine; ATTEND Internal Medicine

== ENCOUNTER 2022-09-06 17:31 | Inpatient (IN) ==
[2022-09-06] MEDS ORDERED: ONDANSETRON 4 MG/2 ML VIAL IV STA (19:18)
[2022-09-06] MEDS ORDERED: ALBUTEROL/IPRATROPIUM 3 ML NEB RESP TX STA (19:18)
[2022-09-06] MEDS ORDERED: FUROSEMIDE 40 MG/4 ML VIAL IV STA (19:18)
[2022-09-06] MEDS ORDERED: PIPERACILLIN/TAZOBACTAM 3,375 MG in SODIUM CHLORIDE 0.9% 100 ML IV STA (19:18)
[2022-09-06] MEDS ORDERED: methylPREDNISolone SOD SUC 125 MG/2 ML VIAL IV STA (19:18)
[2022-09-06 19:27] LABS: Basophils # 0.1 10*3/uL (0.0-0.2); Basophils % 0.9 % (0.0-0.8); Eosinophils # 1.3 10*3/uL (0.0-0.87); Eosinophils % 13.7 % (0.00-10.9); Hematocrit 35.3 VOL% (42.0-52.0); Hemoglobin 11.3 GM/DL (14.0-18.0); Immature Granulocytes % 0.4 %; Immature Granulocytes Absolute 0.04 #; Lymphocytes # 1.2 10*3/uL (1.4-4.0); Lymphocytes % 13.1 % (21.2-54.2); Mean Corpuscular Volume 90.5 FL (87-102); Mean Platelet Volume 9.5 FL (9.6-12.0); Monocytes # 0.8 10*3/uL (0.11-0.8); Monocytes % 8.8 % (1.7-12.7); Neutrophils % 63.1 % (38.7-73.9); Platelet Count 160 T/CUMM (130-400); White Blood Count 9.24 T/CUMM (4-12)
[2022-09-06] MEDS ORDERED: ALBUTEROL NEB SOLN 5 MG/ML 20 ML/BOTTLE CONT NEB SCH (19:30)
[2022-09-06] MEDS ORDERED: ALBUTEROL 2.5 MG/3 ML NEB RESP TX ONE (19:43)
[2022-09-06 19:45] LABS: Albumin 3.2 G/DL (3.4-5.0); Bilirubin,Total 1.5 MG/DL (0.20-1.00); Calcium 8.6 MG/DL (8.5-10.1); Osmolality,Calculated 285.8 MOS/KG (273-304); Potassium 3.4 MMOL/L (3.5-5.1); Total Protein 7.4 G/DL (6.4-8.2)
[2022-09-06 20:16] LABS: Eosinophils 12 % (0-10); Lymphocytes 12 % (20-55); Polychromasia Slight; Total Cells Counted 100
[2022-09-06 20:18] LABS: Platelet Estimate Normal; Reactive Lymphocytes Slight
[2022-09-06] MEDS ORDERED: HYDROmorphone 1 MG/1 ML SYRINGE IV STA (20:19)
[2022-09-06 21:08] LABS: INR 1.8; PT Patient Result 19.1 SECS (10.1-12.1)
[2022-09-06] MEDS ORDERED: GLUCAGON 1 MG VIAL IM PRN (21:25)
[2022-09-06] MEDS ORDERED: MAGNESIUM SULF RIDER 2 GM/50 ML PREMIX IV PRN (21:25)
[2022-09-06] MEDS ORDERED: ZALEPLON 5 MG CAPSULE PO PRN (21:25)
[2022-09-06] MEDS ORDERED: MAGNESIUM SULF RIDER 4 GM/100 ML PREMIX IV PRN (21:25)
[2022-09-06] MEDS ORDERED: POTASSIUM CHLORIDE 20 MEQ TABLET PO PRN (21:25)
[2022-09-06] MEDS ORDERED: ONDANSETRON 4 MG/2 ML VIAL IV PRN (21:25)
[2022-09-06] MEDS ORDERED: ALBUTEROL/IPRATROPIUM 3 ML NEB RESP TX PRN (21:31)
[2022-09-06] MEDS ORDERED: DEXTROSE 10% 250 ML BAG IV PRN (21:47)
[2022-09-06] MEDS ORDERED: COLCHICINE 0.6 MG CAPSULE PO PRN (21:50)
[2022-09-06 22:10] LABS: Bilirubin,Urine Negative (Negative); Blood, Urine Negative (Negative); Glucose,Urine (UA) 250 mg/dL (Negative); Hyaline Casts,Urine 8 /LPF (0-3); Ketones,Urine Negative (Negative); Mucus,Urine Occasional /LPF (Occasional); Nitrite,Urine Negative (Negative); Protein,Urine Trace mg/dL (Negative); RBC,Urine <1 /HPF (0-4); Urine Appearance Clear (Clear); Urine Color Yellow (Yellow)
[2022-09-06 22:11] LABS: Urine Urobilinogen 0.2 eU/dL (<2.0)
[2022-09-07 03:39] LABS: Basophils % 0.4 % (0.0-0.8); Eosinophils % 0.5 % (0.00-10.9); Hematocrit 35.6 VOL% (42.0-52.0); Hemoglobin 11.2 GM/DL (14.0-18.0); Immature Granulocytes % 0.7 %; Immature Granulocytes Absolute 0.05 #; Lymphocytes # 0.5 10*3/uL (1.4-4.0); Mean Corpuscular HGB Conc 31.5 GM/DL (32-36); Mean Corpuscular Volume 90.4 FL (87-102); Mean Platelet Volume 9.2 FL (9.6-12.0); Monocytes # 0.1 10*3/uL (0.11-0.8); Monocytes % 1.6 % (1.7-12.7); Neutrophils % 90.8 % (38.7-73.9); Platelet Count 134 T/CUMM (130-400); Red Blood Count 3.94 MC/CUMM (3.8-5.5); White Blood Count 7.48 T/CUMM (4-12)
[2022-09-07 03:54] LABS: Albumin 3.4 G/DL (3.4-5.0); Bilirubin,Total 1.6 MG/DL (0.20-1.00); Calcium 8.7 MG/DL (8.5-10.1); Osmolality,Calculated 289.1 MOS/KG (273-304); Potassium 3.6 MMOL/L (3.5-5.1); Total Protein 7.8 G/DL (6.4-8.2)
[2022-09-07 04:09] LABS: Lymphocytes 4 % (20-55); Macrocytosis Slight; Platelet Estimate Normal; Polychromasia Slight; Total Cells Counted 100
[2022-09-07] MEDS: INSULIN REGULAR 100 UNIT/ML SUBCUT SCH ×4 (08:21→20:47)
[2022-09-07] MEDS: guaiFENesin/DM ER 600-30 MG TABLET PO SCH ×2 (08:22→20:46)
[2022-09-07] MEDS: metOLazone 5 MG TABLET PO SCH (08:22)
[2022-09-07] MEDS: RIVAROXABAN 20 MG TABLET PO SCH (08:22)
[2022-09-07] MEDS: FUROSEMIDE 40 MG/4 ML VIAL IV SCH ×2 (08:22→16:37)
[2022-09-07] MEDS: SACUBITRIL/VALSARTAN 49-51 MG TABLET PO SCH ×2 (08:22→20:46)
[2022-09-07] MEDS: DAPAGLIFLOZIN 10 MG TABLET PO SCH (08:22)
[2022-09-07] MEDS: PANTOPRAZOLE 40 MG TABLET PO SCH (08:22)
[2022-09-07] MEDS: SPIRONOLACTONE 25 MG TABLET PO SCH (08:22)
[2022-09-07] MEDS: allopurinoL 100 MG TABLET PO SCH (08:22)
[2022-09-07] MEDS: ATORVASTATIN 80 MG TABLET PO SCH (08:22)
[2022-09-07] MEDS: ASPIRIN CHEW 81 MG TABLET PO SCH (08:22)
[2022-09-07] MEDS: COLLAGENASE OINT 30 GM TUBE TOP SCH (08:23)
[2022-09-07] MEDS: METOPROLOL SUCCINATE XL 50 MG TABLET PO SCH (08:27)
[2022-09-07 10:59] LABS: Barbiturates Screen,Urine Negative (Negative); Benzodiazepines Screen,Urine Negative (Negative); Cannabinoid Screen,Urine Negative (Negative); Opiate Screen,Urine Positive (Negative); Phencyclidine Screen,Urine Negative (Negative)
[2022-09-07] MEDS ORDERED: MAGNESIUM OXIDE 400 MG TABLET PO ONE (11:42)
[2022-09-07] MEDS: PIPERACILLIN/TAZOBACTAM 3,375 MG in SODIUM CHLORIDE 0.9% 100 ML IV SCH ×2 (12:29→20:46)
[2022-09-07] MEDS ORDERED: ZINC OXIDE PASTE 113 GM TUBE TOP PRN (13:05)
[2022-09-07] MEDS ORDERED: VANCOMYCIN INJ 1,500 MG in SODIUM CHLORIDE 0.9% 500 ML IV SCH (18:00)
[2022-09-08 04:06] LABS: Basophils % 0.2 % (0.0-0.8); Eosinophils # 0.1 10*3/uL (0.0-0.87); Eosinophils % 0.7 % (0.00-10.9); Hematocrit 36.4 VOL% (42.0-52.0); Hemoglobin 11.5 GM/DL (14.0-18.0); Immature Granulocytes % 0.5 %; Immature Granulocytes Absolute 0.08 #; Mean Corpuscular HGB Conc 31.6 GM/DL (32-36); Mean Corpuscular Volume 89.7 FL (87-102); Mean Platelet Volume 9.7 FL (9.6-12.0); Monocytes # 0.9 10*3/uL (0.11-0.8); Monocytes % 6.3 % (1.7-12.7); Neutrophils % 85.3 % (38.7-73.9); Platelet Count 183 T/CUMM (130-400); Red Blood Count 4.06 MC/CUMM (3.8-5.5); Red Cell Distribution Width 21.8 % (9.3-17.3); White Blood Count 14.78 T/CUMM (4-12)
[2022-09-08 04:32] LABS: Albumin 3.1 G/DL (3.4-5.0); Bilirubin,Total 1.2 MG/DL (0.20-1.00); Calcium 8.6 MG/DL (8.5-10.1); Osmolality,Calculated 283.2 MOS/KG (273-304); Potassium 3.1 MMOL/L (3.5-5.1); Total Protein 7.2 G/DL (6.4-8.2)
[2022-09-08] MEDS: PIPERACILLIN/TAZOBACTAM 3,375 MG in SODIUM CHLORIDE 0.9% 100 ML IV SCH ×3 (05:34→21:51)
[2022-09-08] MEDS ORDERED: POTASSIUM CHLORIDE 20 MEQ TABLET PO ONE ×2 (08:09→12:00)
[2022-09-08] MEDS: ATORVASTATIN 80 MG TABLET PO SCH (09:02)
[2022-09-08] MEDS: PANTOPRAZOLE 40 MG TABLET PO SCH (09:03)
[2022-09-08] MEDS: SACUBITRIL/VALSARTAN 49-51 MG TABLET PO SCH ×3 (09:03→21:07)
[2022-09-08] MEDS: allopurinoL 100 MG TABLET PO SCH (09:03)
[2022-09-08] MEDS: ASPIRIN CHEW 81 MG TABLET PO SCH (09:03)
[2022-09-08] MEDS: metOLazone 5 MG TABLET PO SCH (09:03)
[2022-09-08] MEDS: RIVAROXABAN 20 MG TABLET PO SCH (09:03)
[2022-09-08] MEDS: DAPAGLIFLOZIN 10 MG TABLET PO SCH (09:03)
[2022-09-08] MEDS: METOPROLOL SUCCINATE XL 50 MG TABLET PO SCH (09:03)
[2022-09-08] MEDS: SPIRONOLACTONE 25 MG TABLET PO SCH (09:03)
[2022-09-08] MEDS: guaiFENesin/DM ER 600-30 MG TABLET PO SCH ×2 (09:03→21:07)
[2022-09-08] MEDS: INSULIN REGULAR 100 UNIT/ML SUBCUT SCH ×4 (09:04→21:15)
[2022-09-08] MEDS: FUROSEMIDE 40 MG/4 ML VIAL IV SCH ×3 (09:04→16:41)
[2022-09-08] MEDS: COLLAGENASE OINT 30 GM TUBE TOP SCH (09:20)
[2022-09-08] MEDS ORDERED: NICOTINE 21 MG/24 HR PATCH TRANSDERM PRN (11:23)
[2022-09-08] MEDS ORDERED: MORPHINE 2 MG/1 ML SYRINGE IV PRN (17:10)
[2022-09-09] MEDS: PIPERACILLIN/TAZOBACTAM 3,375 MG in SODIUM CHLORIDE 0.9% 100 ML IV SCH (06:10)
[2022-09-09 06:15] LABS: Albumin 3.1 G/DL (3.4-5.0); Bilirubin,Total 1.2 MG/DL (0.20-1.00); Calcium 8.4 MG/DL (8.5-10.1); Osmolality,Calculated 281.4 MOS/KG (273-304); Potassium 3.6 MMOL/L (3.5-5.1); Total Protein 6.9 G/DL (6.4-8.2)
[2022-09-09 06:23] LABS: Basophils # 0.1 10*3/uL (0.0-0.2); Basophils % 0.8 % (0.0-0.8); Eosinophils # 1.7 10*3/uL (0.0-0.87); Hematocrit 38.3 VOL% (42.0-52.0); Hemoglobin 11.6 GM/DL (14.0-18.0); Immature Granulocytes % 0.6 %; Immature Granulocytes Absolute 0.06 #; Lymphocytes # 1.3 10*3/uL (1.4-4.0); Lymphocytes % 12.3 % (21.2-54.2); Mean Corpuscular HGB Conc 30.3 GM/DL (32-36); Mean Corpuscular Volume 93.6 FL (87-102); Mean Platelet Volume 9.6 FL (9.6-12.0); Monocytes # 0.7 10*3/uL (0.11-0.8); Monocytes % 7.2 % (1.7-12.7); Neutrophils % 62.1 % (38.7-73.9); Platelet Count 197 T/CUMM (130-400); Red Blood Count 4.09 MC/CUMM (3.8-5.5); Red Cell Distribution Width 22.1 % (9.3-17.3); White Blood Count 10.16 T/CUMM (4-12)
[2022-09-09 06:48] LABS: Eosinophils 21 % (0-10); Lymphocytes 12 % (20-55); Polychromasia Slight; Total Cells Counted 100
[2022-09-09 06:49] LABS: Hypochromia Slight; Microcytosis Slight; Ovalocytes Slight; Platelet Estimate Adequate; Target Cells Slight
[2022-09-09 08:01] VITALS: BP 104/70
[2022-09-09] MEDS: ATORVASTATIN 80 MG TABLET PO SCH (08:51)
[2022-09-09] MEDS: ASPIRIN CHEW 81 MG TABLET PO SCH (08:51)
[2022-09-09] MEDS: DAPAGLIFLOZIN 10 MG TABLET PO SCH (08:51)
[2022-09-09] MEDS: RIVAROXABAN 20 MG TABLET PO SCH (08:51)
[2022-09-09] MEDS: guaiFENesin/DM ER 600-30 MG TABLET PO SCH (08:51)
[2022-09-09] MEDS: SACUBITRIL/VALSARTAN 49-51 MG TABLET PO SCH (08:51)
[2022-09-09] MEDS: METOPROLOL SUCCINATE XL 50 MG TABLET PO SCH (08:52)
[2022-09-09] MEDS: allopurinoL 100 MG TABLET PO SCH (08:52)
[2022-09-09] MEDS: PANTOPRAZOLE 40 MG TABLET PO SCH (08:52)
[2022-09-09] MEDS: INSULIN REGULAR 100 UNIT/ML SUBCUT SCH (08:52)
[2022-09-09] MEDS: SPIRONOLACTONE 25 MG TABLET PO SCH (08:52)
[2022-09-09] MEDS: FUROSEMIDE 40 MG/4 ML VIAL IV SCH (08:52)
[2022-09-09] MEDS: COLLAGENASE OINT 30 GM TUBE TOP SCH (10:56)
[2022-09-09] MEDS: metOLazone 5 MG TABLET PO SCH (10:56)
== END 2022-09-09 12:00 | disposition home health service (06) | DRG 291 ==
LOC: N.ED 17:31 → N.EDINP 21:25 → N.2E 22:39
PROVIDERS: ADMIT Hospitalist; ATTEND Hospitalist